=== PATIENT | female | born 1945 | race Caucasian/White ===

== ENCOUNTER 2019-09-18 02:03 | Outpatient (RCR) | payer MEDICARE, OTHER, SELFPAY ==
[2019-09-18 10:38] LABS: Abs Immature Grans 0.01 10^3/uL (0.0-0.06); Absolute Basophil Count 0.03 10^3/uL (0.0-0.2); Absolute Eosinophil Count 0.09 10^3/uL (0.0-0.7); Absolute Lymphocyte Count 1.17 10^3/uL (1.2-3.4); Absolute Monocyte Count 0.78 10^3/uL (0.1-0.8); Absolute Neutrophil Count 3.33 10^3/uL (1.2-6.7); Basophils % 0.6; Eosinophils % 1.7; HCT 41.1 % (36.0-46.0); HGB 13.5 g/dL (11.2-15.7); Immature Grans % 0.2; Lymphocytes % 21.6; MCH 29.8 pg (27.0-33.0); MCHC 32.8 % (32.0-36.0); MCV 90.7 fL (80-95); Monocytes % 14.4; Neutrophils % 61.5; Platelet Count 220 10^3/uL (130-400); RBC 4.53 10^6/uL (3.93-5.22); RDW-SD 42.7 fL; WBC 5.41 10^3/uL (4.4-10.8)
[2019-09-18 10:55] LABS: ALT 23 U/L (14-59); AST 27 U/L (15-37); Albumin 3.4 g/dL (3.4-5.0); Alkaline Phosphatase 63 U/L (46-116); Anion Gap 9.5 mmol/L (3-11); BUN 13 mg/dL (7-18); Bilirubin, Total 0.7 mg/dL (0.2-1.0); CO2 25.5 mmol/L (21.0-32.0); CREATININE 0.83 mg/dL (0.55-1.02); Calcium 8.7 mg/dL (8.5-10.1); Chloride 101 mmol/L (98-107); Glucose 103 mg/dL (74-106); Potassium 4.3 mmol/L (3.5-5.1); Sodium 136 mmol/L (136-145); Total Protein 6.6 g/dL (6.4-8.2)
== END 2019-09-19 23:59 | disposition home or self-care (01) ==
LOC: INF 02:03
PROVIDERS: PCP Neuromusculoskeletal Medicine & OMM; Visit Provider Internal Medicine Hematology & Oncology
DX: C21.0 Malignant neoplasm of anus, unspecified (principal)
CPT/HCPCS: 36415; 80053; 85025

== ENCOUNTER → 2019-10-01 14:24 | Outpatient (CLI) | payer MEDICARE, OTHER, SELFPAY ==
--- NOTE | 2019-10-01 10:47 | DI.RAD_ITS ---
EXAM: RF CATHETER PATENCY CHECK W CLINICAL HISTORY: ANAL CA, CHECK MEDIPORT,UNABLE TO GET BLOOD FLOW. TECHNIQUE: 2D and realtime digital imaging was performed. CONTRAST MATERIAL: Water soluble contrast was administered. COMPARISON: No exams were available for comparison FINDINGS: The tip of the indwelling central venous catheter is directed cephalad above the level of the clavicl e. Contrast was injected via the port. The contrast does not flow away from the tip of the catheter . The contrast appears to collect along the path of the catheter. The findings are suspicious for a subcutaneous location or obstruction of the catheter tip. IMPRESSION: Malfunction of the catheterization. Findings were discussed with the patient's oncology service on the date of the examination. Fluoro time: 1.29 seconds.
[2019-10-01] MEDS: Omnipaque 350 MG/ML 50 ML BTL IJ (11:22)
== END ==
PROVIDERS: PCP Neuromusculoskeletal Medicine & OMM; Visit Provider Nurse Practitioner Adult Health
DX: T85.618A Breakdown (mechanical) of other specified internal prosthetic devices, implants and grafts, initial encounter (principal); C21.1 Malignant neoplasm of anal canal
CPT/HCPCS: 76000; 96523; Q9967

== ENCOUNTER 2019-10-14 17:21 | Outpatient (REF) | payer MEDICARE, OTHER, SELFPAY ==
[2019-10-14 12:06] LABS: Abs Immature Grans 0.05 10^3/uL (0.0-0.06); Absolute Basophil Count 0.02 10^3/uL (0.0-0.2); Absolute Eosinophil Count 0.02 10^3/uL (0.0-0.7); Absolute Lymphocyte Count 0.38 10^3/uL (1.2-3.4); Absolute Monocyte Count 0.18 10^3/uL (0.1-0.8); Absolute Neutrophil Count 3.88 10^3/uL (1.2-6.7); Basophils % 0.4; Eosinophils % 0.4; HCT 40.1 % (36.0-46.0); HGB 13.3 g/dL (11.2-15.7); Immature Grans % 1.1; Lymphocytes % 8.4; MCH 29.6 pg (27.0-33.0); MCHC 33.2 % (32.0-36.0); MCV 89.1 fL (80-95); MPV 10.3 fL (8.0-11.0); Neutrophils % 85.7; Nucleated RBC 0 %; Platelet Count 164 10^3/uL (130-400); RDW 12.7 % (11.7-14.6); RDW-SD 41.4 fL; WBC 4.53 10^3/uL (4.4-10.8)
[2019-10-14 12:15] LABS: ALT 20 U/L (14-59); AST 17 U/L (15-37); Albumin 3.2 g/dL (3.4-5.0); Alkaline Phosphatase 62 U/L (46-116); Anion Gap 6.1 mmol/L (3-11); BUN 18 mg/dL (7-18); CO2 23.9 mmol/L (21.0-32.0); CREATININE 0.54 mg/dL (0.55-1.02); Calcium 8.7 mg/dL (8.5-10.1); Chloride 104 mmol/L (98-107); Glucose 99 mg/dL (74-106); Potassium 3.2 mmol/L (3.5-5.1); Sodium 134 mmol/L (136-145); Total Protein 5.7 g/dL (6.4-8.2)
== END 2019-10-14 17:41 ==
LOC: LBN 17:21
PROVIDERS: PCP Neuromusculoskeletal Medicine & OMM; Visit Provider Nurse Practitioner Adult Health
DX: C21.0 Malignant neoplasm of anus, unspecified (principal)
CPT/HCPCS: 80053; 83735; 85025; 87324

== ENCOUNTER 2019-10-16 14:14 | Emergency (ER) | payer MEDICARE, OTHER, SELFPAY ==
[2019-10-16] VITALS (18 sets, daily range): BP systolic 109–143; BP diastolic 63–90; PULSE 81–99; RESP 12–41; TEMP 36.4–36.6; O2SAT 94–98
--- NOTE | 2019-10-16 14:15 | DI.CT_ITS ---
EXAM: CT CHEST PE CTA CLINICAL HISTORY: Right sided chest pain, R/O PE. TECHNIQUE: Imaging Protocol: Axial CT angiography was performed with multi-slice acquisition and mu lti-planar and/or 3D reconstructions. CONTRAST MATERIAL: Intravenous: Omnipaque 350 Contrast volume:structured data in ml COMPARISON: No exams were available for comparison FINDINGS: CT angiography of the chest was performed with intravenous infusion of 78 cc of Omnipaque 350. There is a Port-A-Cath in place the tip of which lies in the right atrium. The lungs are clear except for a small calcified right upper lobe intrapulmonary nodule consistent wi th healed granulomatous disease.. No pleural effusion. Tracheobronchial tree appears intact. No evidence of pulmonary embolic disease. Thoracic aorta is of normal diameter, no thoracic aortic an eurysm or dissection, major branch vessels appear intact. No mediastinal or hilar adenopathy. Images obtained through the upper abdomen show unremarkable appearance of the visualized portions of the liver, spleen, pancreas, adrenals, and kidneys. Appearance of the thyroid is heterogeneous, possible left thyroid lobe nodule 2 cm, correlation thyro id ultrasound recommended. IMPRESSION: No evidence of pulmonary embolic disease. Incidental possible 2 cm left thyroid lobe nodule, please correlate with thyroid ultrasound. RADIATION DOSE DELIVERED: 574.29mGy.cm Total DLP 574.29mGy.cm Total DLP DATA REPOSITORY: All CT scans at this facility are submitted to the National Radiology Data Registry (NRDR) Dose Index Registry (DIR) with the [employer] ([employer]). RADIATION OPTIMIZATION: All CT scans at this facility use at least one of these dose optimization te chniques: automated exposure control; mA and/or kV adjustment per patient size (includes targeted exa ms where dose is matched to clinical indication); or iterative reconstruction.
--- NOTE | 2019-10-16 14:15 | RT.EKG_ITS ---
APPROVED REPORT Exam: Resting ECG Patient Location: E HR:92 bpm ECG Measurements Heart Rate 92 AXIS DE 156 P 11 QRSd 80 QRS -40 QT 473 T 39 QTc 586 Conclusion Sinus rhythm...normal P axis, V-rate 92 Inferior infarct, old...Q >35mS, II III aVF Prolonged QT interval...QTc >500mS No stemi
--- NOTE | 2019-10-16 14:40 | ED.GENADUL_ITS ---
Discharge Plan Disposition Patient Disposition: HOME Condition: Stable Discharge Details Chief Complaint: Chest Pain Clinical Impression: Chest pain, Hypokalemia Primary Care Provider: Corby Tony ED Provider: Flo Kinney Home Meds and New Rx's Prescriptions: New potassium chloride 20 mEq tablet extended release 20 meq PO DAILY Qty: 14 RF: 0 Continued prochlorperazine maleate 10 mg Tablet 10 mg PO Q6H PRNRF: 0 capecitabine 500 mg Tablet PO RF: 0 acetaminophen 500 mg Tablet 1,000 mg PO Q6H PRNRF: 0 famotidine 20 mg Tablet 20 mg PO BID PRNRF: 0 methotrexate sodium 2.5 mg Tablet 2.5 mg PO QWEEK RF: 0 dexamethasone 1 mg Tablet 2 mg PO DAILY RF: 0 docusate sodium 100 mg Capsule 100 mg PO BID RF: 0 hydroxychloroquine 200 mg Tablet 200 mg PO DAILY RF: 0 multivitamin with minerals Tablet 1 tab PO DAILY RF: 0 polyethylene glycol 3350 17 gram/dose Powder 17 g PO DAILY PRNRF: 0 ondansetron 4 mg Tablet,Disintegrating 4 mg PO Q8H PRNRF: 0 rituximab 10 mg/mL Concentrate 1,000 mg IV RF: 0 vitamin E 400 unit Capsule 400 unit PO DAILY RF: 0 folic acid 800 mcg Tablet 0.8 mg PO DAILY RF: 0 metoclopramide HCl 10 mg Tablet 5 mg PO Q6H PRNRF: 0 escitalopram oxalate 20 mg Tablet 20 mg PO DAILY RF: 0 bupropion HCl 150 mg Tablet Extended Release 24 Hr 150 mg PO DAILY RF: 0 cholecalciferol (vitamin D3) 25 mcg (1,000 unit) Tablet 25 mcg PO DAILY RF: 0 Discharge Instructions Instructions: Chest Pain (ED), Hypokalemia (ED) Additional Instructions: At this time CTA did not reveal any obvious blood clot in your lung. As we discussed your potassium was low, both p.o. and IV potassium given here in the ER. I have also given you a prescription for potassium. Please watch for new or worsening symptoms and return to the ER for any concerns. Otherwise follow- up with your oncology team as already scheduled tomorrow. Discharge Data Discharge Date/Time-TO BE ENTERED AT DEPARTURE: 10/16/19 18:55 Medical Decision Making <Huma Iverson - Last Filed: 10/17/19 20:38> 73-year-old female presents from the cancer center with chief complaint of right sided chest pain and shortness of breath. This began following a radiation treatment today for anal cancer. Patient states that she was sitting in a chair being wheeled out of the department when she has an acute sudden onset of right sided mid axillary pleuritic type chest pain which she describes as sharp. It then radiated to the left side of her chest and anterior midsternal chest. Which she reports as a heaviness. The pain has now subsided upon initial exam but she reports dyspneic shortness of breath. She denies any fever chills, nausea vomiting. She does report loose stools which is been ongoing for the last week due to increased laxative ingestion. She states that she been taking Imodium the last 2 days. She does not take aspirin on a daily basis. She is not a not a smoker denies any illicit drugs. work-up ordered including CBC, CMP, serial troponins, CT chest rule out PE. We will give aspirin here in department. Discussed low potassium result of 2.9 with patient. She states that she has been prescribed potassium supplement per her primary care provider but just picked it up today. At this time patient is being transported to diagnostic imaging for chest CT. Her initial troponin was within normal limits. 20 mEq of KCl ordered IV piggyback at this time. Care is to be handed off to oncoming provider KYM Bob discussed patient case in details and plan for chest CT and repeat troponin, verbalized understanding. At this time of this dictation patient was hemodynamically stable. <KYM Fowler - Last Filed: 10/16/19 19:16> This is a 73-year-old female who I assumed care that shift change from my colleague SOFI Iverson. Patient was evaluated today at the cancer center and subsequently sent to the ER for right-sided chest pain that eventually wrapped around the lower chest wall onto the left side. Please see SOFI Iverson's initial HPI for full story. Concern for potential PE, laboratory values have already been obtained, CTA pending as well as repeat troponin. Upon my assumption of her care in room 4, she was resting comfortably in no acute distress. Head normocephalic, moist mucous membranes, lungs clear to auscultation, heart regular rate and rhythm, abdomen soft, nontender. Without calf pain or swelling. Patient currently tells me that she is asymptomatic. She reports that she was belching earlier and she believes that she was having gas pain. She is agreeable to awaiting a repeat troponin. Labs already obtained revealed a white count of 3.54 hemoglobin 12.7 hematocrit 37.5 platelet count 125. Potassium 2.9, creatinine 0.54 with a GFR greater than 60. Glucose 98. Urine without evidence of infection. CTA read by radiology as negative for PE. Incidental thyroid nodule, if this is never been evaluated then recommend ultrasound. I discussed CT findings. She reports that this nodule is known and she has been evaluated in [place] for the same. Repeat troponin pending, patient remains asymptomatic. In the meantime I was able to reach out to the [facility], able to speak with NINO Vigil. She is aware of the patient's visit at their clinic and her presentation to the ER. They recommend that she takes all scheduled medications today and she is to follow-up with Dr. Ewing tomorrow as already scheduled. This was relayed to the patient, she had no additional questions or concerns. Repeat troponin remained less than 0.05. She remains asymptomatic. We discussed her potassium level. She checked and she does not have a prescription for potassium. I will give her a single p.o. dose now and she will fill her prescription tomorrow. She was encouraged to return to the ER for new or worsening symptoms, otherwise follow-up with her oncology team as already scheduled tomorrow. HPI <Huma Iverson - Last Filed: 10/17/19 20:38> General Date/Time Provider Initiated Documentation: 10/16/19 14:15 . Limitations to Documentation: no limitations . Information obtained by: patient . HPI Narrative: 73-year-old female presents from the [facility] with chief complaint of right sided chest pain and shortness of breath. This began following a radiation treatment today for anal cancer. Patient states that she was sitting in a chair being wheeled out of the department when she has an acute sudden onset of right sided mid axillary pleuritic type chest pain which she describes as sharp. It then radiated to the left side of her chest and anterior midsternal chest. Which she reports as a heaviness. The pain has now subsided upon initial exam but she reports dyspneic shortness of breath. She denies any fever chills, nausea vomiting. She does report loose stools which is been ongoing for the last week due to increased laxative ingestion. She states that she been taking Imodium the last 2 days. She does not take aspirin on a daily basis. She is not a not a smoker denies any illicit drugs. Related Data Home Medications Medication Instructions Recorded Confirmed acetaminophen 1,000 mg PO Q6H PRN 10/16/19 10/16/19 bupropion HCl 150 mg PO DAILY 10/16/19 10/16/19 capecitabine mg PO 10/16/19 cholecalciferol (vitamin D3) 25 mcg PO DAILY 10/16/19 10/16/19 dexamethasone 2 mg PO DAILY 10/16/19 10/16/19 docusate sodium 100 mg PO BID 10/16/19 10/16/19 escitalopram oxalate 20 mg PO DAILY 10/16/19 10/16/19 famotidine 20 mg PO BID PRN 10/16/19 10/16/19 folic acid 0.8 mg PO DAILY 10/16/19 10/16/19 hydroxychloroquine 200 mg PO DAILY 10/16/19 10/16/19 methotrexate sodium 2.5 mg PO QWEEK 10/16/19 10/16/19 metoclopramide HCl 5 mg PO Q6H PRN 10/16/19 10/16/19 multivitamin with minerals 1 tab PO DAILY 10/16/19 10/16/19 ondansetron 4 mg PO Q8H PRN 10/16/19 10/16/19 polyethylene glycol 3350 17 g PO DAILY PRN 10/16/19 10/16/19 potassium chloride 20 meq PO DAILY #14 tab 10/16/19 prochlorperazine maleate 10 mg PO Q6H PRN 10/16/19 10/16/19 rituximab 1,000 mg IV 10/16/19 vitamin E 400 unit PO DAILY 10/16/19 10/16/19 Previous Rx's Medication Instructions Recorded potassium chloride 20 meq PO DAILY #14 tab 10/16/19 Allergies Allergy/AdvReac Type Severity Reaction Status Date / Time infliximab Allergy Hives Unverified 10/16/19 15:00 Penicillins Allergy Hives Unverified 10/16/19 14:24 Sulfa (Sulfonamide Allergy Hives Unverified 10/16/19 14:24 Antibiotics) tuberculin,PPD,multi-puncture Allergy Anaphylaxsi Unverified 10/16/19 14:24 s General Stated Complaint: Chest Pain ELSI: 2 Review of Systems <Huma Iverson - Last Filed: 10/17/19 20:38> Narrative: Constitutional: Negative for weight loss, alert and oriented, well groomed, normal body habitus, appears comfortable. HEENT: Denies trauma, headaches, blurry vision, nasal discharge, sore throat, trouble swallowing. Chest: Denies palpitations, irregular rhythm, hypertension. Positive right- sided chest pain with radiation around to the left anterior chest. Respiratory: Denies cough, hemoptysis. Positive shortness of breath. GI: Denies abdominal pain, nausea, vomiting, positive alternating diarrhea with alternating constipation due to anal cancer which she has been treated for this time. : Denies dysuria, hematuria, flank pain, rectal bleeding. Neuro: Denies dizziness, blurry vision, weakness, syncope, headache or facial numbness. Hematologic: Denies easy bruising, intolerance to heat or cold, hair loss. PFSH <Huma Iverson - Last Filed: 10/17/19 20:38> Social History Smoking/Tobacco Use Status: Never Alcohol Intake: current Alcohol Intake frequency: holidays/special occasions only Drug use: Never Substance use type: does not use Do you feel safe at home: Yes Do you feel safe in your relationship?: Yes Exam <Huma Iverson - Last Filed: 10/17/19 20:38> Narrative Exam Narrative: Constitutional: Alert and oriented x3. Appears stated age. Normal body habitus. Head: Normocephalic, no trauma. Eyes: Pupils PERRLA, Red reflex noted, EOM's intact. Eyelids symmetrical without lesions, discharge, or swelling. ENT: Bilateral TM's WNL, External ear normal to inspection, no mastoid TTP, swelling, or erythema, Nasal turbinates WNL, no nasal discharge. Normal dentition, Posterior pharynx WNL, no exudate. Chest: RRR, Normal S1, S2, distal pulses intact. She does have a right anterior chest wall Port-A-Cath. Resp: Lungs clear to auscultation bilaterally, no wheezes, rales, or rhonchi. Musculoskeletal: Normal gait, 5/5 strength to all four extremities. Skin: No suspicious rashes or lesions. Capillary refill less than 2 sec. Neurologic: Cranial nerves II-XII intact. Alert and oriented x 3. DTR's intact. Hematologic/Lymphatic: No ecchymosis, no lymphadenopathy. Course <Huma Iverson - Last Filed: 10/17/19 20:38> Vital Signs Vital signs: Vital Signs Temperature 36.6 C 10/16/19 14:18 Pulse 99 H 10/16/19 14:18 Respiratory Rate 24 10/16/19 14:18 Blood Pressure 123/63 10/16/19 14:18 Pulse Oximetry 96 10/16/19 14:18 Temperature 36.6 C 10/16/19 14:18 Temperature Source Temporal Artery Scan 10/16/19 14:18 Pulse 99 H 10/16/19 14:18 Respiratory Rate 24 10/16/19 14:18 Respiratory Effort 10/16/19 14:21 Blood Pressure 123/63 10/16/19 14:18 Blood Pressure Position Supine 10/16/19 14:18 Pulse Oximetry 96 10/16/19 14:18 Oxygen Delivery Method Room Air 10/16/19 14:18 Oxygen Flow Rate 0 10/16/19 14:18 Pain Level 2 10/16/19 14:18 Sign Out <Huma Iverson - Last Filed: 10/17/19 20:38> Sign Out Data: Sign Out Comment: Pending CT chest result and Potassium infusion Last updated by Huma Iverson at 10/16/19 16:11
[2019-10-16 14:42] LABS: Abs Immature Grans 0.02 10^3/uL (0.0-0.06); Absolute Basophil Count 0.01 10^3/uL (0.0-0.2); Absolute Eosinophil Count 0.06 10^3/uL (0.0-0.7); Absolute Lymphocyte Count 0.45 10^3/uL (1.2-3.4); Absolute Monocyte Count 0.29 10^3/uL (0.1-0.8); Absolute Neutrophil Count 2.71 10^3/uL (1.2-6.7); Basophils % 0.3; Eosinophils % 1.7; HCT 37.5 % (36.0-46.0); HGB 12.7 g/dL (11.2-15.7); Immature Grans % 0.6; Lymphocytes % 12.7; MCH 29.7 pg (27.0-33.0); MCHC 33.9 % (32.0-36.0); MCV 87.8 fL (80-95); MPV 9.6 fL (8.0-11.0); Monocytes % 8.2; Neutrophils % 76.5; Nucleated RBC 0 %; Platelet Count 125 10^3/uL (130-400); RBC 4.27 10^6/uL (3.93-5.22); RDW 12.9 % (11.7-14.6); RDW-SD 40.7 fL; WBC 3.54 10^3/uL (4.4-10.8)
[2019-10-16] MEDS: Aspirin 81 MG CHEW 324 MG CH (14:52)
[2019-10-16 14:55] LABS: ALT 24 U/L (14-59); AST 21 U/L (15-37); Alkaline Phosphatase 63 U/L (46-116); Anion Gap 12.4 mmol/L (3-11); BUN 18 mg/dL (7-18); Bilirubin, Total 0.8 mg/dL (0.2-1.0); CO2 22.6 mmol/L (21.0-32.0); CREATININE 0.54 mg/dL (0.55-1.02); Calcium 8.4 mg/dL (8.5-10.1); Chloride 101 mmol/L (98-107); Glucose 98 mg/dL (74-106); Sodium 136 mmol/L (136-145); Troponin I < 0.05 ng/mL (<0.06)
[2019-10-16 15:05] LABS: Potassium 2.9 mmol/L (3.5-5.1)
[2019-10-16] MEDS: Normal Saline 250 ML IV (16:00)
[2019-10-16] MEDS: POTASSIUM CHLORIDE 20 MEQ/100 ML BAG 50 MEQ IVPB (16:00)
[2019-10-16] MEDS: Omnipaque 350 MG/ML 100 ML BTL IJ (16:02)
[2019-10-16] MEDS: Normal Saline - Diluent 50 ML VIAL IV (16:02)
[2019-10-16 16:30] LABS: Bilirubin Small (Negative); Blood Negative (Negative); Clarity Clear (Clear); Glucose Negative (Negative); Ketones 15 mg/dL (Negative); Leukocyte Esterase Negative (Negative); Nitrite Negative (Negative); Specific Gravity >= 1.030 (1.005-1.025); Urobilinogen 0.2 EU/dL (Up TO 0.2); pH 6.5 (5-8)
[2019-10-16 16:32] LABS: Bacteria Negative HPF (Negative); Epithelial Cells Many HPF (Negative); RBC Negative HPF (0-2)
[2019-10-16 16:33] LABS: C & S Indicated? No/Sq. Contamination; Casts Negative LPF (Negative); Crystals Many Calcium Oxalate HPF (Negative); Mucus Negative (Negative)
--- NOTE | 2019-10-16 17:15 | RT.EKG_ITS ---
APPROVED REPORT Exam: Resting ECG Patient Location: E HR:87 bpm ECG Measurements Heart Rate 87 AXIS NH 160 P 10 QRSd 83 QRS -36 QT 375 T 25 QTc 451 Conclusion Sinus rhythm.rate 87 Inferior infarct, old...Q >35mS, II III aVF no stemi
[2019-10-16 17:51] LABS: Troponin I < 0.05 ng/mL (<0.06)
[2019-10-16] MEDS: Potassium Chloride 20 MEQ TABCR 40 MEQ PO (18:35)
== END 2019-10-16 18:55 | disposition home or self-care (01) ==
PROVIDERS: Registered Nurse Emergency; Emergency Provider Physician Assistant; PCP Neuromusculoskeletal Medicine & OMM
DX: E87.6 Hypokalemia (principal); R07.81 Pleurodynia; R06.02 Shortness of breath; Z95.828 Presence of other vascular implants and grafts
CPT/HCPCS: 36591; 71275; 80053; 93005; 96361; 96365; 96366; 99285; 81003; 81015; 83735; 84484; 85025; 93010; 99284; J3480; J3490

== ENCOUNTER 2019-10-20 14:15 | Outpatient (RCR) | payer MEDICARE, OTHER, SELFPAY ==
[2019-10-01] MEDS: Normal Saline Flush 10 ML SYR IVP (11:09)
[2019-10-10 15:02] LABS: Abs Immature Grans 0.02 10^3/uL (0.0-0.06); Absolute Lymphocyte Count 0.56 10^3/uL (1.2-3.4); Absolute Monocyte Count 0.31 10^3/uL (0.1-0.8); Absolute Neutrophil Count 3.84 10^3/uL (1.2-6.7); HCT 38.4 % (36.0-46.0); HGB 12.6 g/dL (11.2-15.7); Immature Grans % 0.4; Lymphocytes % 11.8; MCH 29.7 pg (27.0-33.0); MCHC 32.8 % (32.0-36.0); MCV 90.6 fL (80-95); Monocytes % 6.6; Neutrophils % 81.2; Nucleated RBC 0 %; Platelet Count 214 10^3/uL (130-400); RBC 4.24 10^6/uL (3.93-5.22); RDW 13.2 % (11.7-14.6); RDW-SD 43.6 fL; WBC 4.73 10^3/uL (4.4-10.8)
[2019-10-10 15:20] LABS: ALT 20 U/L (14-59); AST 20 U/L (15-37); Alkaline Phosphatase 52 U/L (46-116); Anion Gap 8.8 mmol/L (3-11); BUN 12 mg/dL (7-18); Bilirubin, Total 0.9 mg/dL (0.2-1.0); CO2 26.2 mmol/L (21.0-32.0); CREATININE 0.76 mg/dL (0.55-1.02); Calcium 8.8 mg/dL (8.5-10.1); Chloride 97 mmol/L (98-107); Glucose 108 mg/dL (74-106); Sodium 132 mmol/L (136-145); Total Protein 6.1 g/dL (6.4-8.2)
[2019-10-20] MEDS: Heparin 500 UNITS/5 ML SYRINGE IV (14:29)
[2019-10-20] MEDS: Normal Saline Flush 10 ML SYR IVP (14:29)
[2019-10-20 14:44] LABS: ALT 22 U/L (14-59); AST 14 U/L (15-37); Albumin 3.3 g/dL (3.4-5.0); Alkaline Phosphatase 69 U/L (46-116); Anion Gap 6.5 mmol/L (3-11); BUN 19 mg/dL (7-18); Bilirubin, Total 0.5 mg/dL (0.2-1.0); CO2 24.5 mmol/L (21.0-32.0); CREATININE 0.81 mg/dL (0.55-1.02); Calcium 8.8 mg/dL (8.5-10.1); Chloride 107 mmol/L (98-107); Glucose 101 mg/dL (74-106); Potassium 4.4 mmol/L (3.5-5.1); Sodium 138 mmol/L (136-145); Total Protein 6.3 g/dL (6.4-8.2)
[2019-10-20 15:01] LABS: Abs Immature Grans 0.01 10^3/uL (0.0-0.06); Absolute Basophil Count 0.01 10^3/uL (0.0-0.2); Absolute Eosinophil Count 0.09 10^3/uL (0.0-0.7); Absolute Monocyte Count 0.41 10^3/uL (0.1-0.8); Absolute Neutrophil Count 2.21 10^3/uL (1.2-6.7); Basophils % 0.3; Eosinophils % 2.9; HCT 39.9 % (36.0-46.0); HGB 13.2 g/dL (11.2-15.7); Immature Grans % 0.3; Lymphocytes % 12.8; MCH 29.5 pg (27.0-33.0); MCHC 33.1 % (32.0-36.0); MCV 89.1 fL (80-95); MPV 10.3 fL (8.0-11.0); Monocytes % 13.1; Neutrophils % 70.6; Nucleated RBC 0 %; RBC 4.48 10^6/uL (3.93-5.22); RDW 13.2 % (11.7-14.6); RDW-SD 41.3 fL; WBC 3.13 10^3/uL (4.4-10.8)
[2019-10-20 15:36] LABS: Platelet Count 99 10^3/uL (130-400)
== END 2019-10-20 23:59 | disposition home or self-care (01) ==
LOC: INF 14:15
PROVIDERS: PCP Neuromusculoskeletal Medicine & OMM; Visit Provider Internal Medicine Hematology & Oncology
DX: C21.0 Malignant neoplasm of anus, unspecified (principal)
CPT/HCPCS: 36591; 80053; 96523; 85025

== ENCOUNTER 2019-11-14 04:27 | Outpatient (RCR) | payer MEDICARE, OTHER, SELFPAY ==
[2019-10-24] MEDS: Normal Saline Flush 10 ML SYR 30 ML IVP (15:03)
[2019-10-24] MEDS: Heparin 500 UNITS/5 ML SYRINGE IVP (15:04)
[2019-10-24 15:15] LABS: Absolute Eosinophil Count 0.07 10^3/uL (0.0-0.7); Absolute Monocyte Count 0.54 10^3/uL (0.1-0.8); Absolute Neutrophil Count 1.14 10^3/uL (1.2-6.7); Eosinophils % 3.4; HCT 37.6 % (36.0-46.0); HGB 12.8 g/dL (11.2-15.7); Lymphocytes % 14.6; MCV 88.3 fL (80-95); MPV 9.5 fL (8.0-11.0); Monocytes % 26.3; Neutrophils % 55.7; Nucleated RBC 0 %; RBC 4.26 10^6/uL (3.93-5.22); RDW 13.7 % (11.7-14.6); RDW-SD 40.7 fL; WBC 2.05 10^3/uL (4.4-10.8)
[2019-10-24 15:17] LABS: Platelet Count 73 10^3/uL (130-400)
[2019-10-24 15:25] LABS: ALT 21 U/L (14-59); AST 17 U/L (15-37); Albumin 3.3 g/dL (3.4-5.0); Alkaline Phosphatase 71 U/L (46-116); Anion Gap 6.8 mmol/L (3-11); BUN 15 mg/dL (7-18); Bilirubin, Total 0.9 mg/dL (0.2-1.0); CO2 26.2 mmol/L (21.0-32.0); CREATININE 0.73 mg/dL (0.55-1.02); Calcium 8.8 mg/dL (8.5-10.1); Chloride 101 mmol/L (98-107); Glucose 100 mg/dL (74-106); Potassium 4.1 mmol/L (3.5-5.1); Sodium 134 mmol/L (136-145); Total Protein 6.3 g/dL (6.4-8.2)
[2019-10-31] MEDS: Heparin 500 UNITS/5 ML SYRINGE IV (12:41)
[2019-10-31] MEDS: Normal Saline Flush 10 ML SYR IVP (12:41)
[2019-10-31 12:55] LABS: Abs Immature Grans 0.01 10^3/uL (0.0-0.06); Absolute Lymphocyte Count 0.23 10^3/uL (1.2-3.4); Absolute Monocyte Count 0.17 10^3/uL (0.1-0.8); Absolute Neutrophil Count 1.77 10^3/uL (1.2-6.7); Eosinophils % 4.4; HCT 34.6 % (36.0-46.0); HGB 11.4 g/dL (11.2-15.7); Immature Grans % 0.4; Lymphocytes % 10.1; MCHC 32.9 % (32.0-36.0); MCV 91.1 fL (80-95); MPV 9.9 fL (8.0-11.0); Monocytes % 7.5; Neutrophils % 77.6; Nucleated RBC 0 %; RDW-SD 43.1 fL; WBC 2.28 10^3/uL (4.4-10.8)
[2019-10-31 13:10] LABS: ALT 16 U/L (14-59); AST 16 U/L (15-37); Albumin 2.8 g/dL (3.4-5.0); Alkaline Phosphatase 71 U/L (46-116); Anion Gap 7.4 mmol/L (3-11); BUN 19 mg/dL (7-18); Bilirubin, Total 0.8 mg/dL (0.2-1.0); CO2 25.6 mmol/L (21.0-32.0); CREATININE 0.88 mg/dL (0.55-1.02); Calcium 8.4 mg/dL (8.5-10.1); Chloride 101 mmol/L (98-107); Glucose 126 mg/dL (74-106); Sodium 134 mmol/L (136-145); Total Protein 5.6 g/dL (6.4-8.2)
[2019-10-31 13:13] LABS: Platelet Count 41 10^3/uL (130-400)
[2019-11-07] MEDS: Heparin 500 UNITS/5 ML SYRINGE IV (12:45)
[2019-11-07] MEDS: Normal Saline Flush 10 ML SYR IVP (12:45)
[2019-11-07 12:55] LABS: Abs Immature Grans 0.01 10^3/uL (0.0-0.06); Absolute Eosinophil Count 0.05 10^3/uL (0.0-0.7); Absolute Lymphocyte Count 0.12 10^3/uL (1.2-3.4); Absolute Monocyte Count 0.22 10^3/uL (0.1-0.8); Absolute Neutrophil Count 0.94 10^3/uL (1.2-6.7); Eosinophils % 3.7; HCT 32.3 % (36.0-46.0); HGB 10.8 g/dL (11.2-15.7); Immature Grans % 0.7; MCH 30.3 pg (27.0-33.0); MCHC 33.4 % (32.0-36.0); MCV 90.7 fL (80-95); MPV 9.1 fL (8.0-11.0); Monocytes % 16.4; Neutrophils % 70.2; Platelet Count 101 10^3/uL (130-400); RBC 3.56 10^6/uL (3.93-5.22); RDW 16.1 % (11.7-14.6); RDW-SD 45.8 fL
[2019-11-07 13:13] LABS: WBC 1.34 10^3/uL (4.4-10.8)
[2019-11-07 13:14] LABS: ALT 15 U/L (14-59); AST 19 U/L (15-37); Albumin 2.5 g/dL (3.4-5.0); Alkaline Phosphatase 67 U/L (46-116); Anion Gap 5.7 mmol/L (3-11); BUN 14 mg/dL (7-18); Bilirubin, Total 0.9 mg/dL (0.2-1.0); CO2 28.3 mmol/L (21.0-32.0); CREATININE 0.88 mg/dL (0.55-1.02); Calcium 8.3 mg/dL (8.5-10.1); Chloride 101 mmol/L (98-107); Diff Comment Agrees w/ Instrument; Glucose 111 mg/dL (74-106); Macrocytosis 1+; Nucleated RBC 1 %; Polychromasia Present; Potassium 3.9 mmol/L (3.5-5.1); Sodium 135 mmol/L (136-145); Total Protein 5.4 g/dL (6.4-8.2)
[2019-11-11] MEDS: Normal Saline Flush 10 ML SYR IVP (10:19)
[2019-11-11 10:29] LABS: Abs Immature Grans 0.08 10^3/uL (0.0-0.06); Absolute Eosinophil Count 0.02 10^3/uL (0.0-0.7); HCT 34.1 % (36.0-46.0); HGB 11.1 g/dL (11.2-15.7); MCH 30.1 pg (27.0-33.0); MCHC 32.6 % (32.0-36.0); MCV 92.4 fL (80-95); MPV 9.3 fL (8.0-11.0); Nucleated RBC 3 %; Platelet Count 137 10^3/uL (130-400); RBC 3.69 10^6/uL (3.93-5.22); RDW 17.9 % (11.7-14.6); WBC 2.35 10^3/uL (4.4-10.8)
[2019-11-11 10:49] LABS: ALT 9 U/L (14-59); AST 18 U/L (15-37); Albumin 2.4 g/dL (3.4-5.0); Alkaline Phosphatase 65 U/L (46-116); Anion Gap 5.6 mmol/L (3-11); BUN 15 mg/dL (7-18); Bilirubin, Total 0.7 mg/dL (0.2-1.0); CO2 28.4 mmol/L (21.0-32.0); CREATININE 1.05 mg/dL (0.55-1.02); Calcium 8.3 mg/dL (8.5-10.1); Chloride 101 mmol/L (98-107); Estimated GFR 51.37 (mL/min/1.73m2); Glucose 125 mg/dL (74-106); Potassium 3.6 mmol/L (3.5-5.1); Sodium 135 mmol/L (136-145); Total Protein 5.3 g/dL (6.4-8.2)
[2019-11-11 10:58] LABS: Absolute Lymphocyte Count 0.19 10^3/uL (1.2-3.4); Absolute Monocyte Count 0.47 10^3/uL (0.1-0.8); Absolute Neutrophil Count 1.62 10^3/uL (1.2-6.7); Atypical Lymphocytes % 1; Bands % 7
[2019-11-11 10:59] LABS: Diff Comment Manual Differential; Metamyelocytes % 2
[2019-11-11 11:00] LABS: Polychromasia Present
[2019-11-14] MEDS: Normal Saline Flush 10 ML SYR IVP (12:20)
[2019-11-14] MEDS: Heparin 500 UNITS/5 ML SYRINGE IV (12:20)
[2019-11-14 12:27] LABS: Abs Immature Grans 0.04 10^3/uL (0.0-0.06); Absolute Basophil Count 0.01 10^3/uL (0.0-0.2); Absolute Lymphocyte Count 0.21 10^3/uL (1.2-3.4); Absolute Monocyte Count 0.38 10^3/uL (0.1-0.8); Absolute Neutrophil Count 1.76 10^3/uL (1.2-6.7); Basophils % 0.4; HCT 32.7 % (36.0-46.0); HGB 10.7 g/dL (11.2-15.7); Immature Grans % 1.7; Lymphocytes % 8.8; MCH 30.2 pg (27.0-33.0); MCHC 32.7 % (32.0-36.0); MCV 92.4 fL (80-95); MPV 9.4 fL (8.0-11.0); Monocytes % 15.8; Neutrophils % 73.3; Nucleated RBC 0 %; Platelet Count 124 10^3/uL (130-400); RBC 3.54 10^6/uL (3.93-5.22); RDW 18.5 % (11.7-14.6); RDW-SD 57.8 fL
[2019-11-14 12:36] LABS: ALT 12 U/L (14-59); AST 21 U/L (15-37); Albumin 2.4 g/dL (3.4-5.0); Alkaline Phosphatase 68 U/L (46-116); Anion Gap 6.5 mmol/L (3-11); BUN 17 mg/dL (7-18); Bilirubin, Total 0.8 mg/dL (0.2-1.0); CO2 27.5 mmol/L (21.0-32.0); CREATININE 0.74 mg/dL (0.55-1.02); Calcium 8.2 mg/dL (8.5-10.1); Chloride 102 mmol/L (98-107); Glucose 118 mg/dL (74-106); Potassium 3.7 mmol/L (3.5-5.1); Sodium 136 mmol/L (136-145); Total Protein 5.2 g/dL (6.4-8.2)
== END 2019-11-19 23:59 | disposition home or self-care (01) ==
LOC: INF 04:27
PROVIDERS: PCP Neuromusculoskeletal Medicine & OMM; Visit Provider Internal Medicine Hematology & Oncology
DX: C21.0 Malignant neoplasm of anus, unspecified (principal); Z45.2 Encounter for adjustment and management of vascular access device
CPT/HCPCS: 36591; 80053; 85025

== ENCOUNTER 2019-11-19 19:48 | Outpatient (REF) | payer MEDICARE, OTHER, SELFPAY ==
[2019-11-19 18:07] LABS: Bilirubin Small (Negative); Blood Negative (Negative); Clarity Turbid (Clear); Glucose Negative (Negative); Ketones Negative (Negative); Leukocyte Esterase Trace (Negative); Nitrite Negative (Negative); Specific Gravity >= 1.030 (1.005-1.025); Urobilinogen 0.2 EU/dL (Up TO 0.2); pH 6.5 (5-8)
[2019-11-19 18:19] LABS: C & S Indicated? Yes; Crystals Many Amorphous HPF (Negative)
== END 2019-11-19 20:08 ==
LOC: LBN 19:48
PROVIDERS: PCP Neuromusculoskeletal Medicine & OMM; Visit Provider Radiology Radiation Oncology
DX: L25.8 Unspecified contact dermatitis due to other agents (principal)
CPT/HCPCS: 81003; 81015; 87086

== ENCOUNTER 2019-11-25 17:56 | Inpatient (IN) | payer MEDICARE, OTHER, SELFPAY ==
[2019-11-25] VITALS (7 sets, daily range): BP systolic 121–139; BP diastolic 56–74; PULSE 63–101; RESP 16–32; TEMP 36.4–36.7; O2SAT 93–95
--- NOTE | 2019-11-25 18:00 | RT.EKG_ITS ---
APPROVED REPORT Exam: Resting ECG Patient Location: E HR:94 bpm ECG Measurements Heart Rate 94 AXIS OR 174 P 1 QRSd 82 QRS -19 QT 365 T 15 QTc 456 Conclusion Sinus rhythm..Rate 94 Anterior Q waves No st elevation
--- NOTE | 2019-11-25 18:15 | DI.RAD_ITS ---
EXAM: XR CHEST 2V PA LATERAL CLINICAL HISTORY: Anal Cancer, gen weakness TECHNIQUE: COMPARISON: No exams were available for comparison FINDINGS: There is a Port-A-Cath in position on the right, the tip of which lies in the SVC. Heart is not enla rged. Lungs are grossly clear and well expanded. No pleural effusion seen. IMPRESSION: No evidence of acute process. RADIATION DOSE DELIVERED: Total DLP
--- NOTE | 2019-11-25 18:25 | ED.GENADUL_ITS ---
Discharge Plan Disposition Patient Disposition: [facility] INPATIENT Condition: Stable Discharge Details Clinical Impression: Acute hypokalemia, Anal cancer Primary Care Provider: Corby Tony ED Provider: Prateek Clark Home Meds and New Rx's Prescriptions: No Action prochlorperazine maleate 10 mg Tablet 10 mg PO Q6H PRNRF: 0 capecitabine 500 mg Tablet PO RF: 0 acetaminophen 500 mg Tablet 1,000 mg PO Q6H PRNRF: 0 famotidine 20 mg Tablet 20 mg PO BID PRNRF: 0 methotrexate sodium 2.5 mg Tablet 2.5 mg PO QWEEK RF: 0 dexamethasone 1 mg Tablet 2 mg PO DAILY RF: 0 docusate sodium 100 mg Capsule 100 mg PO BID RF: 0 hydroxychloroquine 200 mg Tablet 200 mg PO DAILY RF: 0 multivitamin with minerals Tablet 1 tab PO DAILY RF: 0 polyethylene glycol 3350 17 gram/dose Powder 17 g PO DAILY PRNRF: 0 ondansetron 4 mg Tablet,Disintegrating 4 mg PO Q8H PRNRF: 0 rituximab 10 mg/mL Concentrate 1,000 mg IV RF: 0 vitamin E 400 unit Capsule 400 unit PO DAILY RF: 0 folic acid 800 mcg Tablet 0.8 mg PO DAILY RF: 0 metoclopramide HCl 10 mg Tablet 5 mg PO Q6H PRNRF: 0 escitalopram oxalate 20 mg Tablet 20 mg PO DAILY RF: 0 bupropion HCl 150 mg Tablet Extended Release 24 Hr 150 mg PO DAILY RF: 0 cholecalciferol (vitamin D3) 25 mcg (1,000 unit) Tablet 25 mcg PO DAILY RF: 0 potassium chloride 20 mEq tablet extended release 20 meq PO DAILY Qty: 14 RF: 0 Medical Decision Making 74-year-old female who has anal cancer being treated by the [facility]. She has been undergoing 5-day a week radiation and oral chemotherapy. She is had some generalized weakness for a few weeks time, now particularly worsening over 2 to 3 days time and her daughter notes that she has been unable to get out of bed on her own now for the past 2 days and has been urinating on pads in the bed rather than risks trying to go to the bathroom. She is not had a fever. She is had decreased p.o. intake with simply a piece of toast and sips of liquids today. No syncope. No chest pain. No known travel. She arrives to the ER with a pulse of 100 at rest, afebrile at 36.4, pleasant and interactive with her daughter Margie at the bedside. Her exam notes some raw areas of skin in her bilateral inguinal region to which barrier cream was applied. Her rectum does show ulceration of the perirectal/anal skin. Differential diagnosis includes dehydration, electrolyte abnormality, must exclude occult pneumonia or UTI. IV placed, fluids initiated, patient referred for chest x-ray, urinalysis, laboratory work-up. Labs reveal a sodium of 133, potassium 3.0, chloride 98, bicarb 28, BUN 18, creatinine 0.7. Albumin 2.0. Magnesium 1.8. LFTs unremarkable, troponin negative. CBC with white count 7.5, hematocrit 33, platelets 105, ANC 1.0. Urinalysis specific gravity 1.02, trace ketones present, no nitrites and no leuk esterase. Chest x-ray with linear opacity noted in the left lung base. Likely atelectasis. Patient's decline over days to weeks time, her hypokalemia, hypoalbuminemia and general decompensation I do feel it is reasonable to consider admission for hydration, electrolyte supplementation, PT/OT evaluation and consultation with palliative care. Case discussed with Dr. Kaur. Patient states to me she does wish to be DNR/DNI. She is amenable to consultation with palliative care. HPI General Mode of arrival: ambulatory . Date/Time Provider Initiated Documentation: 11/25/19 17:57 . Limitations to Documentation: no limitations . Information obtained by: patient and family . History of Present Illness 74 year old F presents to the emergency department with the chief complaint of Generalized weakness, worse over 3 days, undergoing chemo and radiation, described as moderate, Quality is described as dull and constant, Patient started experiencing this day(s) and it has been constant. Rest improves symptom(s), Movement worsens symptoms . Patient notes loss of appetite, malaise and weakness; denies fever/chills and syncope. Patient did receive the following treatments prior to arrival, none Related Data Home Medications Medication Instructions Recorded Confirmed acetaminophen 1,000 mg PO Q6H PRN 10/16/19 10/16/19 bupropion HCl 150 mg PO DAILY 10/16/19 10/16/19 capecitabine mg PO 10/16/19 cholecalciferol (vitamin D3) 25 mcg PO DAILY 10/16/19 10/16/19 dexamethasone 2 mg PO DAILY 10/16/19 10/16/19 docusate sodium 100 mg PO BID 10/16/19 10/16/19 escitalopram oxalate 20 mg PO DAILY 10/16/19 10/16/19 famotidine 20 mg PO BID PRN 10/16/19 10/16/19 folic acid 0.8 mg PO DAILY 10/16/19 10/16/19 hydroxychloroquine 200 mg PO DAILY 10/16/19 10/16/19 methotrexate sodium 2.5 mg PO QWEEK 10/16/19 10/16/19 metoclopramide HCl 5 mg PO Q6H PRN 10/16/19 10/16/19 multivitamin with minerals 1 tab PO DAILY 10/16/19 10/16/19 ondansetron 4 mg PO Q8H PRN 10/16/19 10/16/19 polyethylene glycol 3350 17 g PO DAILY PRN 10/16/19 10/16/19 potassium chloride 20 meq PO DAILY #14 tab 10/16/19 prochlorperazine maleate 10 mg PO Q6H PRN 10/16/19 10/16/19 rituximab 1,000 mg IV 10/16/19 vitamin E 400 unit PO DAILY 10/16/19 10/16/19 Previous Rx's Medication Instructions Recorded potassium chloride 20 meq PO DAILY #14 tab 10/16/19 Allergies Allergy/AdvReac Type Severity Reaction Status Date / Time infliximab Allergy Hives Unverified 11/25/19 18:06 Penicillins Allergy Hives Unverified 11/25/19 18:06 Sulfa (Sulfonamide Allergy Hives Unverified 11/25/19 18:06 Antibiotics) tuberculin,PPD,multi-puncture Allergy Anaphylaxsi Unverified 11/25/19 18:06 s General Stated Complaint: GenMedical ELSI: 3 Review of Systems Narrative: No fever, no cough. Decreased p.o. intake. Unable to get out of bed and having to urinate on pads. Worse past 2 days. No falls or injury. [facility] Social History Smoking/Tobacco Use Status: Never Alcohol Intake: current Alcohol Intake frequency: holidays/special occasions only Drug use: Never Substance use type: does not use Do you feel safe at home: Yes Do you feel safe in your relationship?: Yes Exam Narrative Exam Narrative: GEN: awake, alert, oriented 3. Pleasant, well groomed, interactive. HEAD: Normocephalic, atraumatic ENT: Mucous membranes moist, oropharynx unremarkable, External ear exam unremarkable EYES: PERRL, EOMI NECK: Full ROM, no NIDIA, no menigismus CHEST/RESP: Nontender, clear to auscultation bilateral, no wheeze/rhonchi/rales CARDIOVASCULAR: Tachycardic and regular, no murmur, rub albert. 2+ Rad pulse bilateral ABDOMEN: Soft, nontender, no mass. +Bowel sounds. Bilateral inguinal crease with raw skin present. Rectal exam with ulcerated perirectal tissue. EXT: Full ROM, no edema, no rash Neuro: Grossly normal neurologic exam, conversant, interactive. Psych: Speech fluent, thoughts congruent, affect normal Course Vital Signs Vital signs: Vital Signs Temperature 36.4 C L 11/25/19 18:02 Pulse 101 H 11/25/19 18:02 Respiratory Rate 22 11/25/19 18:02 Blood Pressure 129/61 11/25/19 18:02 Pulse Oximetry 93 11/25/19 18:02 Temperature 36.4 C L 11/25/19 18:02 Pulse 101 H 11/25/19 18:02 Respiratory Rate 22 11/25/19 18:02 Respiratory Effort 11/25/19 18:06 Blood Pressure 129/61 11/25/19 18:02 Blood Pressure Position Supine 11/25/19 18:02 Pulse Oximetry 93 11/25/19 18:02 Oxygen Delivery Method Room Air 11/25/19 18:02 Oxygen Flow Rate 0 11/25/19 18:02 Pain Level 4 11/25/19 18:02
[2019-11-25] MEDS: Normal Saline 1,000 ML 1000 ML IV (18:30)
[2019-11-25 18:36] LABS: Abs Immature Grans 0.37 10^3/uL (0.0-0.06); HCT 33.3 % (36.0-46.0); HGB 11.2 g/dL (11.2-15.7); MCH 30.5 pg (27.0-33.0); MCHC 33.6 % (32.0-36.0); MCV 90.7 fL (80-95); MPV 9.7 fL (8.0-11.0); Nucleated RBC 1 %; Platelet Count 105 10^3/uL (130-400); RBC 3.67 10^6/uL (3.93-5.22); RDW 20.4 % (11.7-14.6); WBC 7.51 10^3/uL (4.4-10.8)
[2019-11-25 18:52] LABS: ALT 13 U/L (14-59); AST 20 U/L (15-37); Alkaline Phosphatase 73 U/L (46-116); Anion Gap 6.8 mmol/L (3-11); BUN 18 mg/dL (7-18); Bilirubin, Total 0.8 mg/dL (0.2-1.0); CO2 28.2 mmol/L (21.0-32.0); CREATININE 0.74 mg/dL (0.55-1.02); Calcium 7.8 mg/dL (8.5-10.1); Chloride 98 mmol/L (98-107); Glucose 104 mg/dL (74-106); Magnesium 1.8 mg/dL (1.8-2.4); Sodium 133 mmol/L (136-145); Total Protein 4.8 g/dL (6.4-8.2)
[2019-11-25 18:53] LABS: Troponin I < 0.05 ng/mL (<0.06)
[2019-11-25 18:54] LABS: Absolute Lymphocyte Count 1.05 10^3/uL (1.2-3.4); Absolute Neutrophil Count 5.18 10^3/uL (1.2-6.7); Atypical Lymphocytes % 2; Bands % 1
[2019-11-25 18:55] LABS: Absolute Monocyte Count 1.28 10^3/uL (0.1-0.8); Anisocytosis 1+; Diff Comment Manual Differential; Polychromasia Present
--- NOTE | 2019-11-25 19:15 | NUR.NOTE ---
Nursing Note: Petroleum jelly applied to groin area to peeling skin.
--- NOTE | 2019-11-25 19:16 | DI.VRAD_ITS ---
PROCEDURE INFORMATION: Exam: XR Chest, 2 Views Exam date and time: 11/25/2019 6:50 PM Age: 74 years old Clinical indication: Anal cancer, gen weakness TECHNIQUE: Imaging protocol: XR of the chest Views: 2 views. COMPARISON: CT CHEST PE CTA 10/16/2019 3:48 PM FINDINGS: Tubes, catheters and devices: There is a right-sided chest port in place with catheter terminating in the lower superior vena cava. Lungs: No gross consolidation. A linear opacity noted in the left lung base, may represent atelectasis. Pleural space: No pleural effusion. No pneumothorax. Heart/Mediastinum: Unremarkable. No cardiomegaly. Bones/joints: Unremarkable. IMPRESSION: Suggestion of mild atelectasis in the left lung, however mild pneumonia in this region is possible and may be excluded clinically. Dictated and Authenticated by: Denae Wells MD. Ordering:XIANG Chandra MD
[2019-11-25 19:24] LABS: Bilirubin Small (Negative); Blood Negative (Negative); Clarity Clear (Clear); Glucose Negative (Negative); Ketones Trace mg/dL (Negative); Leukocyte Esterase Negative (Negative); Nitrite Negative (Negative); Specific Gravity 1.025 (1.005-1.025); pH 6.5 (5-8)
[2019-11-25 19:36] LABS: Epithelial Cells Few HPF (Negative)
[2019-11-25 19:37] LABS: Bacteria Moderate HPF (Negative); C & S Indicated? Yes; Casts Negative LPF (Negative); Crystals Negative HPF (Negative); Mucus Heavy (Negative); Other Cells Negative (Negative)
[2019-11-25] MEDS: POTASSIUM CHLORIDE/0.9% NACL 1,000 ML 100 MEQ IV (19:57)
--- NOTE | 2019-11-25 20:49 | W.PM.HP.N ---
Date of service: 11/25/19 Time of Service: 20:49 Assessment and Plan Assessment and plan (1) Acute hypokalemia: Status: Acute Assessment and plan: K of 3.0 on admission. Due to poor po intake. Given IV K+ in the ED Kcl 20 meq po daily initiated. Monitor (2) Anal cancer: Status: Acute Assessment and plan: Has raw anal area. Finished course of radiation tx. She has a barrier ointment she uses; will have her supply this if possible. She is currently on oral chemotx. Pallitative care consulted to discuss her goals and plan a course of action given her current decline. (3) Generalized weakness: Status: Acute Assessment and plan: Chemo and radiation tx, cancer and poor nutrition all contributing. Will see if marinol helps with her appetite. Nutrition consulted. PT consulted. (4) Intertrigo: Status: Acute Assessment and plan: Barriet creatm applied in the ED and will continue. (5) Rheumatoid arthritis: Status: Chronic Assessment and plan: Previous to her cancer dx and initiating oral chemotx she was taking methotrexate and Plaquenil She states she is currently doing OK regarding her RA. She does take 1000mg po immediate release tylenol Q6h prn. She takes a dose at night to help her sleep. Will give a dose of Ofirmev 1000mg IV tonight. History of Present Illness History of Present Illness Chief Complaint: Weakness Narrative: This is a 74 yo female with a h/o anal cancer and depression. She is currently undergoing treatment at [facility]. She just completed a course of radiation and continues on oral chemotherapy tx. She has endorsed generalized weakness for several weeks, worsening over the last 2-3 days. She has been unable to get out of bed w/o assistance recently. Her daughter reports they have been placing pads under her to soak urine rather than risk her falling while assisting her to the bathroom. She reports her oral intake has been poor / has a lack of appetite. On the day of admission she only ate a piece of toast and took sips of liquids. She has had no F/C, emesis, diarrhea. Her WBC count was normal; previously had been neutropenic. Hgb 11.2. K low at 3.0. Wild mildly low at 133. Calcium low at 7.8. Mg 1.8. Albumin low; 2.0. Review of Systems All systems reviewed & are unremarkable except as noted in HPI and below PFSH Social History Smoking/Tobacco Use Status: Never Alcohol Intake: current Alcohol Intake frequency: holidays/special occasions only Drug use: Never Substance use type: does not use Do you feel safe at home: Yes Do you feel safe in your relationship?: Yes Meds Home Medications and Allergies Home Medications Medication Instructions Recorded Confirmed Type acetaminophen 1,000 mg PO Q6H PRN 10/16/19 11/25/19 History bupropion HCl 150 mg PO DAILY 10/16/19 11/25/19 History cholecalciferol (vitamin D3) 25 mcg PO DAILY 10/16/19 11/25/19 History docusate sodium 100 mg PO BID PRN 10/16/19 11/25/19 History escitalopram oxalate 20 mg PO DAILY 10/16/19 11/25/19 History famotidine 20 mg PO BID PRN 10/16/19 11/25/19 History folic acid 0.8 mg PO DAILY 10/16/19 11/25/19 History metoclopramide HCl 5 mg PO Q6H PRN 10/16/19 11/25/19 History multivitamin with minerals 1 tab PO DAILY 10/16/19 11/25/19 History polyethylene glycol 3350 17 g PO DAILY PRN 10/16/19 11/25/19 History prochlorperazine maleate 10 mg PO Q6H PRN 10/16/19 11/25/19 History vitamin E 400 unit PO DAILY 10/16/19 11/25/19 History oxycodone See Rx Instructions .ROUTE .COMPLEX 11/25/19 11/25/19 History Allergies Allergy/AdvReac Type Severity Reaction Status Date / Time infliximab Allergy Hives Unverified 11/25/19 18:06 ondansetron [From Zofran] Allergy Other (See Unverified 11/25/19 20:05 Comment) Penicillins Allergy Hives Unverified 11/25/19 18:06 Sulfa (Sulfonamide Allergy Hives Unverified 11/25/19 18:06 Antibiotics) tuberculin,PPD,multi-puncture Allergy Anaphylaxsi Unverified 11/25/19 18:06 s Exam Const General: cooperative and no acute distress Nutritional Appearance: obese Orientation: oriented x3 [facility] Head: normocephalic and atraumatic Ears: hearing grossly normal bilaterally Eyes Sclera: sclerae normal Pupils: PERRL Resp Effort & Inspection: normal respiratory effort Auscultation: clear to auscultation bilaterally Cardio Jugular venous pressure: no JVD Rate: regular rate Rhythm: regular rhythm Heart Sounds: S1 normal and S2 normal GI Inspection: obesity Palpation: soft Auscultation: normal bowel sounds Skin General skin exam: erythema (groin creases) Extrem General: no clubbing, cyanosis or edema and no calf tenderness Psych Appearance: grossly normal Mental Status: mental status grossly normal Speech and Movement: speech and movement normal Affect: normal affect Results Labs Result diagrams: 11/25/19 18:15 11/25/19 18:15 Labs: Laboratory Results - last 24 hr 11/25/19 11/25/19 11/25/19 18:15 18:15 19:10 WBC 7.51 RBC 3.67 L Hgb 11.2 Hct 33.3 L MCV 90.7 MCH 30.5 MCHC 33.6 RDW 20.4 H Plt Count 105 L MPV 9.7 Immature Gran % 0.0 Neutrophils % 68.0 Band Neutrophils % 1 Lymphocytes % 12.0 Atypical Lymphs % 2 Monocytes % 17.0 Eosinophils % 0.0 Basophils % 0.0 Nucleated RBC % 1 Absolute Neutrophils 5.18 Absolute Lymphocytes 1.05 L Absolute Monocytes 1.28 H Absolute Eosinophils 0.00 Absolute Basophils 0.00 RBC Morphology See below Polychromasia Present Anisocytosis 1+ Sodium 133 L Potassium 3.0 L Chloride 98 Carbon Dioxide 28.2 Anion Gap 6.8 BUN 18 Creatinine 0.74 Estimated GFR/1.73 m2 >= 60.00 Glucose 104 Calcium 7.8 L Magnesium 1.8 Total Bilirubin 0.8 AST 20 ALT 13 L Alkaline Phosphatase 73 Troponin I < 0.05 Total Protein 4.8 L Albumin 2.0 L Urine Color Yellow Urine Clarity Clear Urine pH 6.5 Ur Specific [place] 1.025 Urine Protein 30 H Urine Ketones Trace H Urine Blood Negative Urine Nitrite Negative Urine Bilirubin Small H Urine Urobilinogen 1.0 H Ur Leukocyte Esterase Negative Urine RBC 5-10 H Urine WBC 10-20 H Ur Epithelial Cells Few Urine Crystals Negative Urine Bacteria Moderate Urine Casts Negative Urine Mucus Heavy Urine Other Negative Ur Culture Indicated? Yes Urine Glucose Negative Last Vital Signs Temp 36.4 C L 11/25/19 18:02 Pulse 63 11/25/19 19:16 Resp 27 H 11/25/19 20:38 BP 121/58 L 11/25/19 19:16 Pulse Ox 93 11/25/19 20:38 COVID-19 Screening Have you,or household,traveled outside [place] in last 14 days?: No Had IN PERSON contact w/suspected or confirmed C-19 person: No
[2019-11-25] MEDS: ACETAMINOPHEN 1,000 MG/100 ML BTL 400 MG IVPB (22:25)
[2019-11-26] MEDS: POTASSIUM CHLORIDE/0.9% NACL 1,000 ML 100 MEQ IV ×2 (05:56→16:45)
[2019-11-26] MEDS: Normal Saline Flush 10 ML SYR IVP ×2 (07:22→11:39)
[2019-11-26 07:29] VITALS: BP 110/77; PULSE 74; RESP 18; TEMP 36.6; O2SAT 91
[2019-11-26 07:55] LABS: ALT 12 U/L (14-59); AST 19 U/L (15-37); Albumin 1.7 g/dL (3.4-5.0); Alkaline Phosphatase 69 U/L (46-116); Anion Gap 8.3 mmol/L (3-11); BUN 13 mg/dL (7-18); Bilirubin, Total 0.7 mg/dL (0.2-1.0); CO2 25.7 mmol/L (21.0-32.0); CREATININE 0.73 mg/dL (0.55-1.02); Calcium 7.5 mg/dL (8.5-10.1); Chloride 103 mmol/L (98-107); Glucose 80 mg/dL (74-106); Magnesium 1.9 mg/dL (1.8-2.4); Potassium 3.2 mmol/L (3.5-5.1); Sodium 137 mmol/L (136-145); Total Protein 4.3 g/dL (6.4-8.2)
[2019-11-26] MEDS: Dronabinol 2.5 MG CAP PO ×2 (07:57→19:42)
[2019-11-26] MEDS: Potassium Chloride 20 MEQ TABCR PO ×3 (07:57→19:43)
[2019-11-26] MEDS: Cholecalciferol (Vitamin D3) 1,000 UNIT TAB 1000 UNITS PO (07:57)
[2019-11-26] MEDS: Folic Acid 1 MG TAB PO (07:57)
[2019-11-26] MEDS: Vitamin E 400 UNITS CAP PO (07:57)
[2019-11-26] MEDS: Multivitamin w/Minerals TAB 1 TAB PO (07:57)
[2019-11-26] MEDS: Enoxaparin 40 MG/0.4 ML SYR SC (07:57)
[2019-11-26] MEDS: Loperamide 2 MG CAP 4 MG PO (08:45)
--- NOTE | 2019-11-26 09:36 | W.PM.PROGNOT ---
Date of Service Date of service: 11/26/19 Time of Service: 09:36 Assessment and Plan Assessment and plan (1) Anal cancer: Status: Acute Assessment and plan: patient is having diarrhea since her radiation treatments (which ended 11/17) which is causing her hypokalemia and generalized weakness and skin excoriations of her perianal area. I have asked pharmacist to call her pharmacy at [email or web address] to obtain the ingredients to compound her skin paste. The patient will receive iv fluids and potassium replacement and I will ask P.T. to see her. (2) Acute hypokalemia: Status: Acute Assessment and plan: will give her both iv and oral replacement (3) Generalized weakness: Status: Acute Assessment and plan: physical therapy consulted to assess her strength/gait (4) Intertrigo: Status: Acute Assessment and plan: pharmacy to confirm ingredients in her skin barrier paste and formulate the same for her while hospitalized (5) Rheumatoid arthritis: Status: Chronic Assessment and plan: currently stable/controlled. no joint swelling. Patient has been off her MTX and Plaquenyl since the beginning of her radiation and chemotherapy treatments (6) Diarrhea: Status: Acute Assessment and plan: will check stool for C. difficile however, the patient has not been hospitalized recently nor has she had any antibiotics Subjective Subjective Interval history since last seen: 74-year-old female history rheumatoid arthritis and anal carcinoma who underwent chemotherapy and radiation therapy completing her radiation treatments November 18, 2019. She has had ongoing diarrhea since she started radiation treatments. Usually is controlled with Imodium. Diarrhea is gotten worse lately and she has not been able to keep up adequate fluids as developed generalized weakness. She was found to be dehydrated and hypokalemic and admitted for IV fluids and potassium replacement along with physical therapy. Exam Narrative Exam Narrative: Alert and oriented person place time circumstance patient is lying in bed on her side. She is in no distress but has been uncomfortable and suffer from generalized weakness. Lungs are clear to auscultation Heart is regular rate and rhythm Abdomen soft nontender nondistended normal active bowel sounds. Anal area and perianal skin is excoriated Objective Last Vital Signs Temp 36.6 C 11/26/19 07:29 Pulse 74 11/26/19 07:29 Resp 18 11/26/19 07:29 BP 110/77 11/26/19 07:29 Pulse Ox 91 L 11/26/19 07:29 Laboratory Results - last 24 hr 11/25/19 11/25/19 11/25/19 18:15 18:15 19:10 WBC 7.51 RBC 3.67 L Hgb 11.2 Hct 33.3 L MCV 90.7 MCH 30.5 MCHC 33.6 RDW 20.4 H Plt Count 105 L MPV 9.7 Immature Gran % 0.0 Neutrophils % 68.0 Band Neutrophils % 1 Lymphocytes % 12.0 Atypical Lymphs % 2 Monocytes % 17.0 Eosinophils % 0.0 Basophils % 0.0 Nucleated RBC % 1 Absolute Neutrophils 5.18 Absolute Lymphocytes 1.05 L Absolute Monocytes 1.28 H Absolute Eosinophils 0.00 Absolute Basophils 0.00 RBC Morphology See below Polychromasia Present Anisocytosis 1+ Sodium 133 L Potassium 3.0 L Chloride 98 Carbon Dioxide 28.2 Anion Gap 6.8 BUN 18 Creatinine 0.74 Estimated GFR/1.73 m2 >= 60.00 Glucose 104 Calcium 7.8 L Magnesium 1.8 Total Bilirubin 0.8 AST 20 ALT 13 L Alkaline Phosphatase 73 Troponin I < 0.05 Total Protein 4.8 L Albumin 2.0 L Urine Color Yellow Urine Clarity Clear Urine pH 6.5 Ur Specific [place] 1.025 Urine Protein 30 H Urine Ketones Trace H Urine Blood Negative Urine Nitrite Negative Urine Bilirubin Small H Urine Urobilinogen 1.0 H Ur Leukocyte Esterase Negative Urine RBC 5-10 H Urine WBC 10-20 H Ur Epithelial Cells Few Urine Crystals Negative Urine Bacteria Moderate Urine Casts Negative Urine Mucus Heavy Urine Other Negative Ur Culture Indicated? Yes Urine Glucose Negative 11/26/19 07:15 WBC RBC Hgb Hct MCV MCH MCHC RDW Plt Count MPV Immature Gran % Neutrophils % Band Neutrophils % Lymphocytes % Atypical Lymphs % Monocytes % Eosinophils % Basophils % Nucleated RBC % Absolute Neutrophils Absolute Lymphocytes Absolute Monocytes Absolute Eosinophils Absolute Basophils RBC Morphology Polychromasia Anisocytosis Sodium 137 Potassium 3.2 L Chloride 103 Carbon Dioxide 25.7 Anion Gap 8.3 BUN 13 Creatinine 0.73 Estimated GFR/1.73 m2 >= 60.00 Glucose 80 Calcium 7.5 L Magnesium 1.9 Total Bilirubin 0.7 AST 19 ALT 12 L Alkaline Phosphatase 69 Troponin I Total Protein 4.3 L Albumin 1.7 L Urine Color Urine Clarity Urine pH Ur Specific [place] Urine Protein Urine Ketones Urine Blood Urine Nitrite Urine Bilirubin Urine Urobilinogen Ur Leukocyte Esterase Urine RBC Urine WBC Ur Epithelial Cells Urine Crystals Urine Bacteria Urine Casts Urine Mucus Urine Other Ur Culture Indicated? Urine Glucose
--- NOTE | 2019-11-26 10:05 | PT.INIE ---
Date of service: 11/26/19 Time of Service: 10:05 PT Notes Visit Reasons: FAILURE TO THRIVE Physical Therapy Inpatient Initial Evaluation Date: 11/26/2019 Referring Doctor: Jaspreet Kaur MD PT Orders: PT CONSULT: Eval/treat Precautions: Fall. Standard. Activity as tolerated. Patient Profile/Admitting Diagnosis: Ana is a 74-year female with anal carcinoma being treated by [facility] who presents to the ED on 12/09/2019 with complaints of generalized weakness that has started for a few weeks now with increasing inability to get out of bed. PMHX: Rheumatoid arthritis Intertrigo Social History/Home Situation: Ana lives in a private home without steps with and daughter. works twice a week which days helps out with her mom. She is independent with all mobility ADL performance without an assistive ambulatory device. She reports 1 fall in the past year. Equipment Owned/DME: Front wheel walker Subjective: Patient reports being fatigued. Sitting on the edge of the bed increases her discomfort in her anal area. She denies headache, chest pain, and dizziness throughout session. Objective: General Observation: Telemetry monitoring in place. IV in right UE. Mental Status: Alert and oriented x4 Pain: Discomfort in the anal area with sitting at edge of bed. ROM: Right Upper Extremity: Shoulder Flexion allows only up to 90 degrees. Shoulder abduction allows only up to 90 degrees. Elbow flexion WFL. Wrist flexion WFL. Opening and closing of hand WFL. Left Upper Extremity: Shoulder Flexion allows only up to 90 degrees. Shoulder abduction allows only up to 90 degrees. Elbow flexion WFL. Wrist flexion WFL. Opening and closing of hand WFL. Right Lower Extremity: Hip flexion WFL. Hip abduction WFL. Knee flexion WFL. Ankle dorsiflexion WFL. Ankle plantarflexion WFL. Left Lower Extremity: Hip flexion WFL. Hip abduction WFL. Knee flexion WFL. Ankle dorsiflexion WFL. Ankle plantarflexion WFL. Strength: Right Upper Extremity: Shoulder flexors 3-/5. Shoulder abductors 3-/5. Elbow flexors 4/5. Elbow extensors 4/5. Icebox Worker strong. Left Upper Extremity: Shoulder flexors 3-/5. Shoulder abductors 3-/5. Elbow flexors 4/5. Elbow extensors 4/5. Icebox Worker strong. Right Lower Extremity: Hip flexors 3+/5. Hip abductors 3+/5. Knee flexors 4-/5. Knee extensors 4-/5. Ankle dorsiflexors 4/5. Ankle plantarflexors 4/5. Left Lower Extremity:Hip flexors 3/5. Hip abductors 3/5. Knee flexors 4/5. Knee extensors 4/5. Ankle dorsiflexors 4-/5. Ankle plantarflexors 4-/5. Sensation: Intact as to pain and pressure on bilateral lower extremities. Bed Mobility/Transfers: Rolling standby assist Supine to sit standby assist Sit to supine standby assist Sit to stand contact-guard assist Stand to sit contact-guard assist Bed to chair not tested due to report of fatigue Chair to bed not tested due to report of fatigue Gait: Not tested due to report of fatigue Balance: Static Sitting: Normal Dynamic Sitting: Normal Static Standing: Fair Dynamic Standing: Fair Special Tests: Mobility Limitations Standardized Measure [facility] AM-PAC 6 clicks Basic Mobility Inpatient Short Form: Raw Score: 18 CMS Score: 47% deficit Informed Consent/Education: Patient instructed in purpose of PT consult and plan of care. Assessment: Ana demonstrates functional decline requiring the use of front wheeled walker for safe mobility ADL performance, decreased activity tolerance, generalized weakness, increased risk due to admitting diagnosis. Ana is a 74-year female with anal carcinoma being treated by [facility] [place] who presents to the ED on 12/09/2019 with complaints of generalized weakness that has started for a few weeks now with increasing inability to get out of bed. Patient presents with clinical signs and symptoms consistent with current/admitting diagnoses that have resulted to mobility limitations, gait instability, generalized weakness, and impairment of motor control as demonstrated by the following impairment level findings: 1. Decreased strength to be LE/UEs major muscle groups 2. Impaired standing balance 3. Impaired activity tolerance 4. Limitation of joint range of motion in B UEs 5. Anal pain discomfort weight bearing Impairments are contributing to the following functional limitations: 1. Dependent bed mobility skills 2. Increased dependence with transfers 3. Inability to safely ambulate without assistive device and physical assistance 4. Increase completion time for mobility ADL performance 5. Increased fall risk 6. Inability to negotiate steps alone safely Patient is assessed as a 41350 moderate complexity based on the following: History: 74-year-old female with impairment level findings, functional limitations, and past medical history as indicated above Examination: Demonstrable impairment in strength, balance, and mobility level with underlying impairments and functional limitations as documented above Presentation:Evolving Decision Makin moderate complexity Goals: Goals X1 week 1. Supine-Sit independent 2. Sit-Supine independent 3. Sit-Stand independent 4. Stand-Sit independent 5. Bed-Chair independent 6. Chair-Bed independent 7. Supervision gait on level surface with use of least restrictive device for at least 300 feet without report of pain nor dyspnea 8. Supervision stair negotiation while holding onto bilateral rails for at least 10 steps without report of pain nor dyspnea 9. Good static and dynamic standing balance/tolerance Plan of Care/Treatment Plan: 1-2x/day, 7 days/week x 1 week. Plan of care has been reviewed with the CONFIGURATION MANAGEMENT ADMINISTRATOR providing the service under Physical Therapy direction. Initiate Physical Therapy intervention for strengthening, bed mobility, transfers, gait, stairs, balance training, use of assistive device. DISCHARGE RECOMMENDATIONS: Patient will benefit from home health PT services in order to progress mobility level using least restrictive assistive ambulatory device, assess home safety, identify additional equipment needs, and establish a functional maintenance program that will increase ability of patient to remain at home. TREATMENT CODE/TIME: 69539 x 30 minutes beginning at 10:05 AM. Thank you for the opportunity to participate in the care of this patient. [place] PT, DPT, CLT [facility] [place], [place]
--- NOTE | 2019-11-26 10:39 | PHA.REVIEW ---
Pharmacy Admission Review - Admission Clinical Review (Last Reviewed 11/25/19 @ 18:26 by Prateek Clark MD) Intertrigo (Acute) Generalized weakness (Acute) Acute hypokalemia (Acute) Anal cancer (Acute) infliximab Allergy (Unverified 11/25/19 18:06) Hives ondansetron [From Zofran] Allergy (Unverified 11/25/19 20:05) Other (See Comment) Penicillins Allergy (Unverified 11/25/19 18:06) Hives Sulfa (Sulfonamide Antibiotics) Allergy (Unverified 11/25/19 18:06) Hives tuberculin,PPD,multi-puncture Allergy (Unverified 11/25/19 18:06) Anaphylaxsis Height 5 ft 3 in Weight 90.2 kg - Renal Dosing Renal Dosing: BUN 13 mg/dL (7-18) 11/26/19 07:15 Creatinine 0.73 mg/dL (0.55-1.02) 11/26/19 07:15 Medications needing adjustments: Reviewed - Anticoagulation Anticoagulation: Hgb 11.2 g/dL (11.2-15.7) 11/25/19 18:15 Hct 33.3 % (36.0-46.0) L 11/25/19 18:15 Plt Count 105 10^3/uL (130-400) L 11/25/19 18:15 Creatinine 0.73 mg/dL (0.55-1.02) 11/26/19 07:15 DVT Prohphylaxis: Reviewed Medications: Enoxaparin - Opiate Usage Evaluate Pain Scale/Pains Meds: Reviewed (Reported pain -05/29 -- has oxycodone PRN ordered, does have history of fentanyl prescribed) Scheduled Bowel Reg ordered if on Opiates?: Yes (PRN orders) - Relevant Labs Sodium 137 mmol/L (136-145) 11/26/19 07:15 Potassium 3.2 mmol/L (3.5-5.1) L 11/26/19 07:15 Chloride 103 mmol/L (98-107) 11/26/19 07:15 Magnesium 1.9 mg/dL (1.8-2.4) 11/26/19 07:15 - DM Control DM Control: Glucose 80 mg/dL (74-106) 11/26/19 07:15 - Heart Failure/SC Heart Failure/SC: Troponin I < 0.05 ng/mL (<0.06) 11/25/19 18:15 - BP Control BP Control: Blood Pressure 110/77 If elevated: Reviewed - Qtc Review If Elevated: Reviewed - IV to PO Switch IV Medications: Reviewed - Home Meds Home Med List reviewed: Reviewed Relevent Home Meds Not ordered & why?: MTX and hydroxychloroquine have been DC'd since pt started oral chemotx, one time fill of 15 fentanyl 50mcg patches in September - Current meds Current Medication Order Review: Reviewed - Comments Comments/Follow Ups: Will receive IV potassium replacement and fluids
[2019-11-26] MEDS: Magnesium Gluconate 500 MG TAB PO (11:39)
[2019-11-26] MEDS: POTASSIUM CHLORIDE 10 MEQ/100 ML BAG 100 MEQ IVPB ×2 (11:40→13:05)
[2019-11-26] MEDS: Loperamide 2 MG CAP PO ×3 (13:04→23:05)
[2019-11-26 13:22] LABS: C Diff PCR Negative (Negative)
[2019-11-26 14:24] LABS: COVID-19 RT-PCR UVMMC Result Negative (Negative)
--- NOTE | 2019-11-26 14:39 | PT.INTREAT ---
Date of service: 11/26/19 Time of Service: 14:39 PT Notes Visit Reasons: FAILURE TO THRIVE Inpatient Physical Therapy Treatment Note [facility] Date: 11/27/2019 PRECAUTIONS: Fall, Activity as Tolerated SUBJECTIVE: Ana is agreeable to particaipting in PT. OBJECTIVE: PAIN: No c/o pain BED MOBILITY/TRANSFERS Supine-sit: S Sit-stand: SBA Stand-sit: SBA GAIT Assistive Device: FWW Weight bearing: Full Assist: CGA-SBA Distance: 150' Deviation: C/o B UE shaking with increased distance THEREX: Patient completed several LE strengthening exercises, while seated at EOB, as per flow sheet. ASSESSMENT: Patient tolerated session with c/o increased fatigue following activity. Patient was able to use FWW to increase gait distance tolerated. She would benefit from continued global strengthening and gait training with FWW for energy conservation. PLAN: Continue with global strengthening and gait training with FWW. TREATMENT CODE/TIME: 25 minutes; 87766, [id number]
[2019-11-26 15:03] VITALS: BP 111/67; PULSE 80; RESP 18; TEMP 36.4; O2SAT 94
--- NOTE | 2019-11-26 15:29 | PDOC.CMIN ---
- If Service Date Differs Date of service: 11/26/19 Time of Service: 15:29 Care Management Initial Assess REASON FOR HOSPITALIZATION:: Weakness, failure to thrive, history of anal cancer with radiation PAST MEDICAL HISTORY/PAST SURGICAL HISTORY:: Anal cancer, hypokalemia, rheumatoid arthritis PREVIOUS FUNCTIONAL STATUS/SOCIAL/FAMILY SUPPORTS:: Ana lives with her spouse Zenon, and her daughter. 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 She was indepedent until treatment for her cancer. She states her daughter helps her at home however she is limited by her own medical problems. Ana does not have any equipment at home and uses no ambulatory aids. CURRENT FUNCTIONAL STATUS:: Ana is lying in bed she is having some abdominal discomfort and continues to have loose stools. She states that she lives with her daughter and her spouse and her daugther is helpful at home. She feels that she is not recovering well from her recent radiation treatments. She wants to return home when she is medically ready and would benefit from some in home VNA services. ADVANCE DIRECTIVES:: None on file Palliative care ordered anticipate will see her on , CM will need to contact the office in the morning to follow up. Has patient been provided with info about the portal/API?: No Did the patient sign up for the portal?: No (enrolled) CODE STATUS:: DNR/DNI INSURANCE COVERAGE / FINANCIAL ISSUES:: Medicare and [place] CURRENT HOME/COMMUNITY SERVICES/EQUIPMENT:: Outpatient Oncology [facility] PRIMARY CARE PHYSICIAN:: POTENTIAL DISCHARGE NEEDS:: Follow up with primary care, palliaitve care consultation, resumption of services through [facility] PATIENT/FAMILY EDUCATION NEEDS:: Discharge education, limitation, and follow up plan of care. ANTICIPATED BARRIERS TO DISCHARGE:: None identified TRANSPORTATION:: Via private car with family PLAN:: Ana will be discharged home when medically ready. She would benefit form new home health nursing which she agrees to. Her family will transport her home upon discharge.
--- NOTE | 2019-11-26 15:33 | CHAPLAIN ---
Ana's nurse, Sukhwinder, came to my office to get a prayer shawl for Ana this morning. When I visited her this afternoon, she was talking with her daughter who was preparing to leave. I introduced myself, explained my role and offered support.
[2019-11-26] MEDS: Acetaminophen 500 MG TAB 1000 MG PO (17:19)
--- NOTE | 2019-11-26 19:36 | WOUNDCONS ---
- If Service Date Differs Date of service: 11/26/19 Time of Service: 19:36 Wound Initial Evaluation Narrative: Patient states perianal radiation injury/ denuded area has been progressively been getting better over the last two weeks since she started using ointment compound ordered by her radiation oncologist at [facility]. The ointment consists of lidocaine 4%, ketoconozole 2%, Hydrocortisone 1% and triple antibiotic ointment which have been compounded together. She states that per her radiation oncology team, she is to use the ointment whenever I feel discomfort. She states she has been toileting about every two to three hours, even overnight over the last 5 or 6 days. Patient also stated that her area of discomfort and irritation was up to my vagina before. Now it is more localized around my rectum. - Wound perianal area Wound Type: Full Thickness Wound General Appearance: Unapproximated Wound Bed Greatest Portion: Dusky Red Wound Bed Lesser Portion: Yellow (Slough) Percent of Wound Bed Granulated/Red: 75 Percent of Wound Bed Slough/Yellow: 25 Wound Length: 6.5 cm Wound Width: 3.2 cm Wound Depth: 0.2 cm Wound Drainage Amount: Minimal Wound Drainage Odor: None/Absent - Pain Pain Level: 4 Pain Scale Used: Ashby-Lerner Faces Pain Description: Burning Pain Duration/Frequency: Intermittent Wound measured at area of partial thickness skin loss, which included areas of full thickness skin loss. Full thickness areas have yellow wound bases while the areas pf partial thickness are dusky red in color. The area is painful to touch with minimal cream colored drainage from the full thickness areas. No induration noted around periphery of wound. Patient lying on left side for assessment and right buttocks lifted for visability of wound and picture. - Recomendation Recomendation:: Recommend cleaning area well after every toileting and follow ointment recommendations from [facility] radiation oncology.
[2019-11-26 22:59] VITALS: BP 128/61; PULSE 85; RESP 17; TEMP 36.7; O2SAT 94
[2019-11-27] MEDS: POTASSIUM CHLORIDE/0.9% NACL 1,000 ML 100 MEQ IV ×3 (02:30→23:51)
[2019-11-27] MEDS: Loperamide 2 MG CAP PO ×3 (06:07→19:34)
[2019-11-27] MEDS: Famotidine 20 MG TAB PO (06:43)
[2019-11-27 06:59] LABS: Anion Gap 8.6 mmol/L (3-11); BUN 11 mg/dL (7-18); CO2 23.4 mmol/L (21.0-32.0); Calcium 7.7 mg/dL (8.5-10.1); Chloride 105 mmol/L (98-107); Glucose 112 mg/dL (74-106); Magnesium 1.7 mg/dL (1.8-2.4); Sodium 137 mmol/L (136-145)
[2019-11-27 07:30] VITALS: BP 136/92; PULSE 92; RESP 19; TEMP 36.6; O2SAT 96
[2019-11-27] MEDS: Acetaminophen 500 MG TAB 1000 MG PO ×3 (07:48→23:12)
[2019-11-27] MEDS: Enoxaparin 40 MG/0.4 ML SYR SC (08:06)
[2019-11-27] MEDS: Folic Acid 1 MG TAB PO (08:07)
[2019-11-27] MEDS: Potassium Chloride 20 MEQ TABCR PO ×2 (08:07→19:34)
[2019-11-27] MEDS: Dronabinol 2.5 MG CAP PO ×2 (08:08→19:34)
[2019-11-27] MEDS: Vitamin E 400 UNITS CAP PO (08:09)
[2019-11-27] MEDS: Magnesium Gluconate 500 MG TAB PO (08:09)
[2019-11-27] MEDS: Cholecalciferol (Vitamin D3) 1,000 UNIT TAB 1000 UNITS PO (08:10)
[2019-11-27] MEDS: MAGNESIUM SULFATE 2 GM/50 ML BAG IVPB (09:55)
[2019-11-27] MEDS: Loperamide 2 MG CAP 4 MG PO (09:56)
--- NOTE | 2019-11-27 09:56 | W.PM.PROGNOT ---
Date of Service Date of service: 11/27/19 Time of Service: 09:56 Assessment and Plan Assessment and plan (1) Anal cancer: Status: Acute Assessment and plan: continue w/ topical barrier cream to her perianal (2) Acute hypokalemia: Status: Acute Assessment and plan: will give her both iv and oral replacement (3) Generalized weakness: Status: Acute Assessment and plan: physical therapy consulted to assess her strength/gait (4) Intertrigo: Status: Acute Assessment and plan: pharmacy to confirm ingredients in her skin barrier paste and formulate the same for her while hospitalized (5) Rheumatoid arthritis: Status: Chronic Assessment and plan: currently stable/controlled. no joint swelling. Patient has been off her MTX and Plaquenyl since the beginning of her radiation and chemotherapy treatments (6) Diarrhea: Status: Acute Assessment and plan: C. difficile screen was negative. We will start her on some Questran to try to thicken her bowel movements continue with Imodium. Once the diarrhea is under control and she is tolerating a diet she can be discharged home. Subjective Subjective Interval history since last seen: Patient still having diarrhea. She had some crampy abdominal pain w/ her diarrhea. Stools are watery. Imodium helps but does not get rid of her diarrhea. I am going to start her on Questran to thicken her stools. Her C. difficile screen was negative. Her potassium is improved at 4.0. She is still receiving iv fluids w/ potassium supplementation along w/ potassium chloride 20 meq tid. I will decr. to bid. Once her diarrhea is under control and she is eating and drinking well enough then she can return home. Hopefully tomorrow. Exam Narrative Exam Narrative: Alert and oriented person place time circumstance patient is lying in bed on her side. She is in no distress but has been uncomfortable and suffer from generalized weakness. Lungs are clear to auscultation Heart is regular rate and rhythm Abdomen soft nontender nondistended normal active bowel sounds. Objective Last Vital Signs Temp 36.6 C 11/27/19 07:30 Pulse 92 H 11/27/19 07:30 Resp 19 11/27/19 07:30 BP 136/92 H 11/27/19 07:30 Pulse Ox 96 11/27/19 07:30 Laboratory Results - last 24 hr 11/25/19 11/26/19 11/27/19 19:55 12:25 06:35 Sodium 137 Potassium 4.0 D Chloride 105 Carbon Dioxide 23.4 Anion Gap 8.6 BUN 11 Creatinine 0.70 Estimated GFR/1.73 m2 >= 60.00 Glucose 112 H Calcium 7.7 L Magnesium 1.7 L Stl C.difficile Tox PCR Negative COVID-19 PCR Negative Nasopharyn COVID-19 PCR Not Applicable Ref Test Perform Site [facility] lab
[2019-11-27] MEDS: Cholestyramine/Aspartame PKT 1 EACH PO ×3 (11:15→19:35)
--- NOTE | 2019-11-27 11:29 | W.PALLCONSUL ---
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 She was in her usual state of health until early summer when she started having bowel changes. Colonoscopy showed that she had cancer and an anal mass. She has been receiving chemoradiation at [facility]. Dr. Ewing is her primary oncologist. She said that of late she has been very fatigued and has loose stools. This is been blamed on her radiation. She was hoping to be over this but it does not seem to be going away. She has been taking some intermittent Imodium and has been eating quite lightly She said that her cancer is curable and she plans to do this. She is hoping to be over this as soon as possible. (I did check Dr. Ewing's notes and he to said that it was a potentially curable cancer.) She lives with her and her daughter Margie. Her daughter Margie moved in a while back and once she developed cancer has been there to help her mom. Ana is quite proud of how Margie has been able to care for her even without any medical background. She has not done advanced directives or a CO LST form. She is very clear that she does not want resuscitation but she does want other treatment such as chemo and radiation. Consults Consult date: 11/27/19 Requesting physician: Flo Shea Assessment and Plan Assessment and plan (1) Diarrhea: Status: Acute (2) Rheumatoid arthritis: Status: Chronic (3) Generalized weakness: Status: Acute (4) Anal cancer: Status: Acute (5) Palliative care patient: Status: Acute Assessment and plan: Discussed at length her present diarrhea. She feels like she has gotten conflicting advice regarding her diarrhea from different people such as what she should eat, drink, meds, etc. She did have a bout of opioid induced constipation (now off the heavy duty opioids because she doesn't like how they make her feel). AT this point she is taking cholesteramine supplement and immodium. She thinks it may be helping. Per pt she has been checked for c diff twice and her home water did not show any contaiminants. I would recommend she try tincture of opioid if the present treatment doesn't work. She completed her DPOA designating her daughter Margie as primary contact and her as the secondary person. COLST was completed. She is a DNR/DNI, wants transport , IV fluids and antibiotics. No tube feedings. I gave her the original of both. Copies have been sent to [facility], [facility], PCP , [facility]. Thank you very much for this consult. I have spent more than 50% of time in counseling with this patient. (6) Physician orders for life-sustaining treatment (POLST) form indicates patient wish for [id number] status: Status: Acute Review of Systems Constitutional Constitutional: Reports daytime sleepiness, Reports fatigue, Reports lethargy, Reports malaise, Reports weakness and Reports weight loss (25 lb) Cardiovascular Cardiovascular: Denies chest pain, Reports rapid heart rate and Reports lightheadedness Gastrointestinal Gastrointestinal: Reports abdominal pain, Reports diarrhea, Reports loose stools and Reports nausea Neurologic Neurologic: Reports weakness Psychiatric Psychiatric: Reports depression Comments: Does not want to go on like this Endocrine Endocrine: Reports fatigue [facility] Social History Smoking/Tobacco Use Status: Never Alcohol Intake: current Alcohol Intake frequency: holidays/special occasions only Drug use: Never Substance use type: does not use Do you feel safe at home: Yes Do you feel safe in your relationship?: Yes Exam Narrative Exam Narrative: Nena woman. Very direct and forthcoming. She is speaking in complete sentences. Cooperative. She does not appear uncomfortable. Results Last Vital Signs Temp 97.9 F 11/27/19 07:30 Pulse 92 H 11/27/19 07:30 Resp 19 11/27/19 07:30 BP 136/92 H 11/27/19 07:30 Pulse Ox 96 11/27/19 07:30 Labs Result diagrams: 11/25/19 18:15 11/27/19 06:35 Labs: Laboratory Results - last 24 hr 11/25/19 11/26/19 11/27/19 19:55 12:25 06:35 Sodium 137 Potassium 4.0 D Chloride 105 Carbon Dioxide 23.4 Anion Gap 8.6 BUN 11 Creatinine 0.70 Estimated GFR/1.73 m2 >= 60.00 Glucose 112 H Calcium 7.7 L Magnesium 1.7 L Stl C.difficile Tox PCR Negative COVID-19 PCR Negative Nasopharyn COVID-19 PCR Not Applicable Ref Test Perform Site [facility] lab
--- NOTE | 2019-11-27 13:04 | W.INDIABCONS ---
Date of service: 11/27/19 Time of Service: 13:05 Diabetes Inpatient Consult DESCRIPTION/ASSESSMENT: 74 year old female admitted with dehydration, hypokalemia secondary to diarrhea and poor intake s/p radiation and chemo for anal cancer. BMI 35, has been stable > 1 year per pt. Finished radiation on 11/18/19 and health has been declining since then. Met with Ana today. She reports diarrhea again this morning and feels very drained, no hunger. Marinol started. She is willing to supplement intake with ensure clear at meals. Reviewed nutrient needs for weight stability. Estimated Needs: 3083-5342 kcal, 68-78 g protein. INTERVENTION: regular meal plan ensure clear BID (adds additional 40 kcal, 30 g protein) PLAN: Continue with meal plan, supplement withi ensure clear for added protein intake for wound healing. will continue to monitor po intake, labs and weight. Time Spent in Nutritional Counseling and Treatment: 15 min spent face to face
--- NOTE | 2019-11-27 13:06 | PDOC.CMPRO ---
- If Service Date Differs Date of service: 11/27/19 Time of Service: 13:06 Care Management Progress Note S/O: Ana was lying in bed when CM met with her. She reported that she was feeling better today. She stated that, per provider, once she is able to tolerate her diet and have less frequent stools, she may be ready for discharge. CM brought her a word search book from the activity cart, at her request. Ana met with Palliative care today to discuss goals of care. CM will continue to follow. A: Ana is a 74 year old female admitted to [facility] on 11/25/19 with Failure to Thrive. P: Anticipate Ana will return home with new orders for HH RN through [place], coordinated by [facility]. Her family will transport her home via private vehicle when ready. She will follow up with her PCP and discharge plan of care. CM will continue to follow.
--- NOTE | 2019-11-27 14:06 | PT.INTREAT ---
Date of service: 11/27/19 Time of Service: 14:07 PT Notes Visit Reasons: FAILURE TO THRIVE Inpatient Physical Therapy Treatment Note [facility] Date: 11/27/2019 PRECAUTIONS: Fall, Activity as Tolerated SUBJECTIVE: Ana states that she is feeling the same today. She reports that she has been up and down to the commode multiple times this morning and this afternoon. OBJECTIVE: Patient experienced LOB x1 in a.m., in standing position, performing small dynamic UE movements, requiring Max x2 for recovery. No c/o dizziness or lightheadedness with LOB. PAIN: No c/o pain BED MOBILITY/TRANSFERS Supine-sit: S in a.m.; I in p.m. Sit-supine: S in a.m.; I in p.m Sit-stand: SBA Stand-sit: SBA Bed-Chair: SBA Chair-bed: SBA GAIT Assistive Device: FWW Weight bearing: Full Assist: CGA Distance: 35' x2 Deviation: C/o increased fatigue THEREX: Patient was instructed in a LE strengthening and stabilization program in a supine position this morning, and a resisted UE and LE strengthening program, while seated at EOB, this afternoon. She was issued 2# ankle weights and yellow Theraband for exercise completion, which she tolerated well. See flow sheet for specific exercise and repetitions. TOILETING: Patient toileted independently ASSESSMENT: Patient tolerated session well, although with c/o increased fatigue with activity. She was able to tolerate a progression in her ther ex program, tolerating the addition of resistance to UE and LE exercises. PLAN: Continue with global strengthening for progression toward safe baseline level of function TREATMENT CODE/TIME: Session 1: 25 minutes; [id number], [id number] Session 2: 20 minutes; 84019
[2019-11-27 15:08] VITALS: BP 126/67; PULSE 85; RESP 18; TEMP 36.7; O2SAT 96
[2019-11-27] MEDS: oxyCODONE 5 MG TAB PO (17:27)
[2019-11-27 18:45] VITALS: BP 126/72; PULSE 80; RESP 17; TEMP 36.4; O2SAT 95
[2019-11-27 22:50] VITALS: BP 138/79; PULSE 72; RESP 18; TEMP 36.8; O2SAT 97
[2019-11-28] MEDS: Cholestyramine/Aspartame PKT 1 EACH PO ×3 (06:41→19:45)
[2019-11-28 07:09] LABS: Abs Immature Grans 0.19 10^3/uL (0.0-0.06); Absolute Basophil Count 0.01 10^3/uL (0.0-0.2); Absolute Lymphocyte Count 0.53 10^3/uL (1.2-3.4); Absolute Monocyte Count 0.66 10^3/uL (0.1-0.8); Absolute Neutrophil Count 2.58 10^3/uL (1.2-6.7); Basophils % 0.3; HCT 29.6 % (36.0-46.0); HGB 9.9 g/dL (11.2-15.7); Immature Grans % 4.8; Lymphocytes % 13.4; MCH 30.9 pg (27.0-33.0); MCHC 33.4 % (32.0-36.0); MCV 92.5 fL (80-95); MPV 9.7 fL (8.0-11.0); Monocytes % 16.6; Neutrophils % 64.9; Nucleated RBC 0 %; RDW 21.1 % (11.7-14.6); RDW-SD 68.5 fL; WBC 3.97 10^3/uL (4.4-10.8)
[2019-11-28 07:14] LABS: Anion Gap 7.9 mmol/L (3-11); BUN 9 mg/dL (7-18); CO2 22.1 mmol/L (21.0-32.0); CREATININE 0.63 mg/dL (0.55-1.02); Calcium 7.3 mg/dL (8.5-10.1); Chloride 105 mmol/L (98-107); Glucose 77 mg/dL (74-106); Potassium 4.3 mmol/L (3.5-5.1); Sodium 135 mmol/L (136-145)
[2019-11-28 07:33] LABS: Diff Comment RBC Morph Reviewed; Platelet Count 98 10^3/uL (130-400)
[2019-11-28 07:34] LABS: Anisocytosis 3+; Poikilocytes 1+; Polychromasia Present
[2019-11-28] MEDS: Enoxaparin 40 MG/0.4 ML SYR SC (07:43)
[2019-11-28] MEDS: Acetaminophen 500 MG TAB 1000 MG PO (07:44)
[2019-11-28] MEDS: Vitamin E 400 UNITS CAP PO (07:44)
[2019-11-28] MEDS: Magnesium Gluconate 500 MG TAB PO (07:44)
[2019-11-28] MEDS: Dronabinol 2.5 MG CAP PO ×2 (07:44→19:44)
[2019-11-28] MEDS: Folic Acid 1 MG TAB PO (07:44)
[2019-11-28] MEDS: Potassium Chloride 20 MEQ TABCR PO ×2 (07:44→19:45)
[2019-11-28] MEDS: Cholecalciferol (Vitamin D3) 1,000 UNIT TAB 1000 UNITS PO (07:44)
[2019-11-28] MEDS: Loperamide 2 MG CAP PO ×4 (07:44→23:00)
[2019-11-28 07:48] VITALS: BP 133/84; PULSE 87; RESP 16; TEMP 36.3; O2SAT 97
[2019-11-28] MEDS: POTASSIUM CHLORIDE/0.9% NACL 1,000 ML 100 MEQ IV (09:43)
--- NOTE | 2019-11-28 10:23 | PGE_ITS ---
Date of Service Date of service: 11/28/19 Time of Service: 10:23 Assessment and Plan Assessment and plan (1) Diarrhea: Status: Acute Assessment and plan: C. difficile screen was negative. Despite the use of Imodium and Questran she still has diarrhea. Is more grainy than liquid at this time but still not forming solid BMs. I will add Metamucil to the regimen to try to thicken her stools. At this time she is not prepared to return home she is still weak and deconditioned and if she sent home in her current state she will become azotemic and hypokalemic again. I had placed the patient on magnesium gluconate for supplementation to prevent hypomagnesemia however the magnesium gluconate may be contributing to her diarrhea. I have since discontinued it. I will get CT of her abdomen and pelvis. Qualifiers: Diarrhea type: unspecified type Qualified Code(s): R19.7 - Diarrhea, unspecified (2) Intertrigo: Status: Acute Assessment and plan: Pharmacy has formulated a barrier paste to protect her skin. (3) Anal cancer: Status: Acute Assessment and plan: continue w/ topical barrier cream to her perianal (4) Acute hypokalemia: Status: Acute Assessment and plan: Hypokalemia has resolved with IV and oral supplementation. Continue oral supplementation along with daily monitoring of her labs. (5) Generalized weakness: Status: Acute Assessment and plan: physical therapy consulted to assess her strength/gait (6) Rheumatoid arthritis: Status: Chronic Assessment and plan: currently stable/controlled. no joint swelling. Patient has been off her MTX and Plaquenyl since the beginning of her radiation and chemotherapy treatments Subjective Subjective Interval history since last seen: Patient is still stooling and having diarrhea despite the use of Imodium and Questran. No vomiting but some nausea. 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 She is in no distress but has been uncomfortable and suffer from generalized weakness. Lungs are clear to auscultation Heart is regular rate and rhythm Abdomen soft w/ some periumbilical tenderness, nondistended normal active bowel sounds. Objective Last Vital Signs Temp 36.3 C L 11/28/19 07:48 Pulse 87 11/28/19 07:48 Resp 16 11/28/19 07:48 BP 133/84 11/28/19 07:48 Pulse Ox 97 11/28/19 07:48 Laboratory Results - last 24 hr 11/28/19 11/28/19 06:27 06:27 WBC 3.97 L RBC 3.20 L Hgb 9.9 L Hct 29.6 L MCV 92.5 MCH 30.9 MCHC 33.4 RDW 21.1 H Plt Count 98 L MPV 9.7 Immature Gran % 4.8 Neutrophils % 64.9 Lymphocytes % 13.4 Monocytes % 16.6 Eosinophils % 0.0 Basophils % 0.3 Nucleated RBC % 0 Absolute Neutrophils 2.58 Absolute Lymphocytes 0.53 L Absolute Monocytes 0.66 Absolute Eosinophils 0.00 Absolute Basophils 0.01 RBC Morphology See below Polychromasia Present Poikilocytosis 1+ Anisocytosis 3+ Sodium 135 L Potassium 4.3 Chloride 105 Carbon Dioxide 22.1 Anion Gap 7.9 BUN 9 Creatinine 0.63 Estimated GFR/1.73 m2 >= 60.00 Glucose 77 Calcium 7.3 L Magnesium 2.0
--- NOTE | 2019-11-28 10:44 | PT.INNT ---
Date of service: 11/28/19 Time of Service: 10:45 PT Notes Visit Reasons: FAILURE TO THRIVE 11/28/2019 Patient refused morning PT session, stating I just had another explosion, I don't know when I'll be ready for you. Could we try after lunch? Nursing alerted. Will attempt to resume PT services this afternoon.
[2019-11-28] MEDS: Psyllium PKT 1 EACH PO ×2 (11:10→19:45)
--- NOTE | 2019-11-28 13:05 | PTTR_ITS ---
Date of service: 11/28/19 Time of Service: 13:05 PT Notes Visit Reasons: FAILURE TO THRIVE Inpatient Physical Therapy Treatment Note [facility] Date: 11/28/2019 PRECAUTIONS: Fall, activity as tolerated SUBJECTIVE: Ana reports that she continues to have diarrhea, stating that she will not be going home today. She reports that she is not feeling very well today, although is agreeable to participating in PT this afternoon. OBJECTIVE: PAIN: Patient complained of discomfort in R side musculature with resisted seated marches BED MOBILITY/TRANSFERS Sit-stand: SBA Stand-sit: SBA Bed-Chair: SBA Chair-bed: SBA GAIT Assistive Device: FWW Weight bearing: Full Assist: CGA Distance: 50' x2 Deviation: Slow pace, c/o increased fatigue THEREX: Patient was instructed in a resisted UEs and LE strengthening program, performed in a seated position, as per flow sheet. Patient was able to tolerate a progression in her ther ex program today, tolerating increased repetitions for most exercises. Patient requires verbal cueing and occasional visual cueing for appropriate exercise performance. ASSESSMENT: Patient tolerated session well, although with complaints of increased fatigue with activity. She was able to tolerate a progression in her ther ex program, tolerating increased repetitions. She would benefit from continued global strengthening as well as gait training, and neuro reeducation for improved mobility and safety, and continued progression towards modified- independent level of function. PLAN: Continue with global strengthening and gait training for improved safety and ability with mobility. TREATMENT CODE/TIME: 25 minutes; 54097, 57585
--- NOTE | 2019-11-28 14:39 | CMPROGNOTE_ITS ---
- If Service Date Differs Date of service: 11/28/19 Time of Service: 14:39 Care Management Progress Note S/O: Ana was sitting up in her chair when CM met with her. She reported that she was feeling discouraged today, as she was hoping to return home. She agrees that it is in her best interest to remain at [facility]. She continues to work with PT. CM will continue to follow. A: Ana is a 74 year old female admitted to [facility] on 11/25/19 with Failure to Thrive. P: Anticipate Ana will return home with new orders for HH RN through [place], coordinated by [facility]. Her family will transport her home via private vehicle when ready. She will follow up with her PCP and discharge plan of care. CM will continue to follow.
[2019-11-28] MEDS: Breeza Beverage 473 ML BTL PO ×2 (15:49→15:50)
[2019-11-28] MEDS: Omnipaque 350 MG/ML 50 ML BTL PO (15:49)
[2019-11-28 16:09] VITALS: BP 152/98; PULSE 89; RESP 18; TEMP 36.5; O2SAT 98
[2019-11-28] MEDS: Omnipaque 350 MG/ML 100 ML BTL IJ (17:12)
[2019-11-28] MEDS: Normal Saline - Diluent 50 ML VIAL IV (17:12)
--- NOTE | 2019-11-28 17:15 | DI.CT_ITS ---
EXAM: CT ABDOMEN PELVIS W CLINICAL HISTORY: diarrhea, abdominal pain TECHNIQUE: Imaging Protocol: Axial computed tomography images with coronal and sagittal reformatted images were created and reviewed CONTRAST MATERIAL: Intravenous: Omnipaque 350 Contrast volume:100 mL Oral: Yes COMPARISON: CT CT CHEST PE CTA from 10/16/2019 FINDINGS: ABDOMEN: Lung Bases: Normal where visualized. Liver: Diffuse decreased attenuation of the liver consistent with fatty infiltration. No measurable mass. Portal, Superior Mesenteric, and Splenic Veins: Unremarkable. Gallbladder and Biliary Tract: No radiodense calculus or dilation. Pancreas: Normal density, no abnormal calcifications or inflammatory process. Spleen: Normal. There is a 1 cm peripherally calcified splenic artery aneurysm. Adrenals: No masses seen. Kidneys: Normal size, contour and axis. No radiodense stones or obstructive uropathy. There is an ind eterminate 1 cm lesion in the midpole of the right kidney. Abdominal Aorta: Abdominal portion non-dilated. Atherosclerosis. Bowel: No evidence of obstruction. Mild bowel wall thickening the distal small bowel suspicious for an enteritis. Mild wall thickening seen in the right colon. A mild colitis cannot be excluded. Anderson endix is unremarkable. Small hiatal hernia. Diverticulosis in the sigmoid colon but no evidence of a cute diverticulitis. Peritoneal Cavity: No ascites, collection or mesenteric inflammatory response. Lymph Nodes: Within normal limits. Bones: Degenerative changes. Soft Tissues: Mild diffuse edema in the soft tissues. There is skin thickening noted in the left ulises ast. PELVIS: Bladder: Incompletely distended but no gross abnormality. Reproductive Organs: Status post hysterectomy. Lymph Nodes: Within normal limits. Bones: Degenerative changes. IMPRESSION: 1. Findings of a distal enteritis without evidence of obstruction. 2. Findings suspicious for mild right colitis. 3. Skin thickening of the left breast. Please correlate clinically. 4. 1 cm indeterminate intermediate density in the medial midpole of the right kidney. Follow-up is r ecommended. This may represent a precontrast and postcontrast MRI. 5. Mild cellulitis. RADIATION DOSE DELIVERED: 1,270.95mGy.cm Total DLP DATA REPOSITORY: All CT scans at this facility are submitted to the National Radiology Data Registry (NRDR) Dose Index Registry (DIR) with the [employer] (A[employer]). RADIATION OPTIMIZATION: All CT scans at this facility use at least one of these dose optimization te chniques: automated exposure control; mA and/or kV adjustment per patient size (includes targeted exa ms where dose is matched to clinical indication); or iterative reconstruction.
[2019-11-28] MEDS: POTASSIUM CHLORIDE/0.9% NACL 1,000 ML 80 MEQ IV (23:00)
[2019-11-28 23:07] VITALS: BP 135/77; PULSE 82; RESP 17; TEMP 37.2; O2SAT 96
[2019-11-29 06:52] LABS: Anion Gap 8.7 mmol/L (3-11); BUN 8 mg/dL (7-18); CO2 22.3 mmol/L (21.0-32.0); CREATININE 0.63 mg/dL (0.55-1.02); Calcium 7.5 mg/dL (8.5-10.1); Chloride 102 mmol/L (98-107); Glucose 70 mg/dL (74-106); Magnesium 1.9 mg/dL (1.8-2.4); Potassium 4.3 mmol/L (3.5-5.1); Sodium 133 mmol/L (136-145)
[2019-11-29 07:29] VITALS: BP 120/73; PULSE 83; RESP 18; TEMP 36.5; O2SAT 98
[2019-11-29] MEDS: Dronabinol 2.5 MG CAP PO ×2 (08:39→20:06)
[2019-11-29] MEDS: Cholecalciferol (Vitamin D3) 1,000 UNIT TAB 1000 UNITS PO (08:39)
[2019-11-29] MEDS: Loperamide 2 MG CAP PO (08:39)
[2019-11-29] MEDS: Vitamin E 400 UNITS CAP PO (08:39)
[2019-11-29] MEDS: Potassium Chloride 20 MEQ TABCR PO ×2 (08:39→20:06)
[2019-11-29] MEDS: Folic Acid 1 MG TAB PO (08:40)
[2019-11-29] MEDS: Psyllium PKT 1 EACH PO ×3 (10:30→20:12)
--- NOTE | 2019-11-29 11:25 | PTTR_ITS ---
Date of service: 11/29/19 Time of Service: 10:50 PT Notes Visit Reasons: FAILURE TO THRIVE Inpatient Physical Therapy Treatment Note [facility] Date: 11/29/2019 PRECAUTIONS:Fall, Standard, Activities as tolerated SUBJECTIVE: Stated she felt SOB with ambulation today. Indicated she has not had to use O2 supplement in the past. This was reported to nursing staff. SOB complaint passed quickly once back to chair. OBJECTIVE: PAIN: No reported pain. BED MOBILITY/TRANSFERS Up in chair when I arrived to patient's room. Sit-stand: SBA Stand-sit: SBA GAIT Assistive Device: FWW Weight bearing: Full Assist: CGA Distance: 40ft x 1 THEREX: Able to perform seated ankle pumps/ heel raises x 10 reps, 2.5# ankle weights with LAQs, hip flexion, hip abd/add for 12 reps each and UE yellow t- band resisted shoulder horizontal abd/ rows, 2# dumbbell resisted bicep curls and 0# resisted shoulder flexion within pain free ROM x 10-12 reps each. ASSESSMENT: Tolerated all but ambulation well today. Despite complaints of SOB with ambulation she recovered quickly once in seated position and did not complain of SOB with exercises. PLAN: Continue with current POC as patient is able to tolerate. Will monitor O2 stats at next session if need. TREATMENT CODE/TIME: 84327m6, [id number], 10:50 to 11:15 (25')
[2019-11-29] MEDS: Cholestyramine/Aspartame PKT 1 EACH PO ×3 (12:08→22:10)
--- NOTE | 2019-11-29 12:16 | W.PM.PROGNOT ---
Date of Service Date of service: 11/29/19 Time of Service: 12:17 Assessment and Plan Assessment and plan (1) Diarrhea: Status: Acute Assessment and plan: CT abd/pelvis last PM showed evidence of distal enteritis and mild R colitis. This is likely d/t radiation txs. Her stools were improving in consistency. May have had some setback d/t oral contrast. Cont cholestyramine and prn lomotial. Qualifiers: Diarrhea type: unspecified type Qualified Code(s): R19.7 - Diarrhea, unspecified (2) Rheumatoid arthritis: Status: Chronic Assessment and plan: Is off her methotrexate and Plaquenil while on oral chemotx. Stable. (3) Intertrigo: Status: Acute Assessment and plan: Cont topical barrier. (4) Generalized weakness: Status: Acute Assessment and plan: Cont to encourage oral intake Cont PT (5) Anal cancer: Status: Acute Assessment and plan: She has a compounded ointment that she uses that has a steroid and lidocaine as components. She uses this BID. Can use viscous lidocaine Q3hrs prn as well. She is continuing oral chemotx and has completed her course of radiation tx. (6) Acute hypokalemia: Status: Acute Assessment and plan: Resolved. Cont to monitor Subjective Subjective Patient reports: tolerating a regular diet (Does state that she feels full readily ) and diarrhea (Several small loose stools overnight; did have po contrast for CT abd last PM); denies shortness of breath and fever Exam Const General: cooperative and no acute distress Nutritional Appearance: obese Orientation: alert and oriented to person Resp Effort & Inspection: normal respiratory effort Auscultation: clear to auscultation bilaterally Cardio Jugular venous pressure: no JVD Rate: regular rate Rhythm: regular rhythm Heart Sounds: S1 normal and S2 normal GI Palpation: soft Percussion: normal to percussion Auscultation: normal bowel sounds Extrem General: no clubbing, cyanosis or edema Objective Last Vital Signs Temp 36.5 C 11/29/19 07:29 Pulse 83 11/29/19 07:29 Resp 18 11/29/19 07:29 BP 120/73 11/29/19 07:29 Pulse Ox 98 11/29/19 07:29 Laboratory Results - last 24 hr 11/29/19 06:20 Sodium 133 L Potassium 4.3 Chloride 102 Carbon Dioxide 22.3 Anion Gap 8.7 BUN 8 Creatinine 0.63 Estimated GFR/1.73 m2 >= 60.00 Glucose 70 L Calcium 7.5 L Magnesium 1.9
--- NOTE | 2019-11-29 13:43 | PDOC.CMPRO ---
- If Service Date Differs Date of service: 11/29/19 Time of Service: 13:43 Care Management Progress Note S/O: Ana remains inpatient, she continues to need IV fluids and still having multiple loose bowel movements. She is not ready for discharge at this time. A: Ana is a 74 year old female admitted to [facility] on 11/25/19 with Failure to Thrive with a history of anal cancer, with radiation that started in September 2019. P: Anticipate Ana will return home with new orders for HH RN through [facility], coordinated by HAYLEY. Her family will transport her home via private vehicle when ready. She will follow up with her PCP and discharge plan of care. [facility] will continue to follow.
[2019-11-29 14:30] LABS: Bilirubin Negative (Negative); Blood Negative (Negative); Clarity Clear (Clear); Glucose Negative (Negative); Ketones Negative (Negative); Leukocyte Esterase Trace (Negative); Nitrite Negative (Negative); Specific Gravity 1.015 (1.005-1.025); Urobilinogen 0.2 EU/dL (Up TO 0.2)
[2019-11-29 14:47] LABS: Bacteria Moderate HPF (Negative); C & S Indicated? Yes; Casts Negative LPF (Negative); Crystals Negative HPF (Negative); Epithelial Cells Few HPF (Negative); Mucus Trace (Negative); Other Cells Few Transitional (Negative); RBC 0-2 HPF (0-2)
[2019-11-29 15:01] VITALS: BP 129/75; PULSE 84; RESP 18; TEMP 36.5; O2SAT 99
[2019-11-29] MEDS: Acetaminophen 500 MG TAB 1000 MG PO (20:08)
[2019-11-30] MEDS: Loperamide 2 MG CAP PO ×2 (02:17→08:25)
[2019-11-30 03:40] VITALS: BP 135/69; PULSE 73; RESP 17; TEMP 36.4; O2SAT 95
[2019-11-30] MEDS: Cholestyramine/Aspartame PKT 1 EACH PO ×2 (06:51→11:27)
[2019-11-30 07:17] LABS: Anion Gap 8.2 mmol/L (3-11); BUN 8 mg/dL (7-18); CO2 24.8 mmol/L (21.0-32.0); CREATININE 0.77 mg/dL (0.55-1.02); Calcium 7.8 mg/dL (8.5-10.1); Chloride 102 mmol/L (98-107); Glucose 81 mg/dL (74-106); Magnesium 1.9 mg/dL (1.8-2.4); Potassium 4.1 mmol/L (3.5-5.1); Sodium 135 mmol/L (136-145)
--- NOTE | 2019-11-30 08:11 | CMPROGNOTE_ITS ---
- If Service Date Differs Date of service: 11/30/19 Time of Service: 08:11 Care Management Progress Note S/O: Ana remains inpatient, she had several loose stools over night. IV fluids have been discontinued, still in need of medication adjustment related to symptom management. She will be discharged home when medically ready with new home health services. A: Ana is a 74 year old female admitted to [facility] on 11/25/19 with Failure to Thrive with a history of anal cancer, with radiation that started in September 2019. P: Anticipate Ana will return home with new orders for HH RN through [facility] [place], coordinated by HAYLEY. Her family will transport her home via private vehicle when ready. She will follow up with her PCP and discharge plan of care. [facility] will continue to follow.
[2019-11-30] MEDS: Dronabinol 2.5 MG CAP PO (08:22)
[2019-11-30] MEDS: Cholecalciferol (Vitamin D3) 1,000 UNIT TAB 1000 UNITS PO (08:22)
[2019-11-30] MEDS: Folic Acid 1 MG TAB PO (08:22)
[2019-11-30] MEDS: Potassium Chloride 20 MEQ TABCR PO (08:22)
[2019-11-30] MEDS: Vitamin E 400 UNITS CAP PO (08:22)
[2019-11-30] MEDS: Psyllium PKT 1 EACH PO (08:22)
[2019-11-30 08:27] VITALS: BP 136/66; PULSE 78; RESP 20; TEMP 36.9; O2SAT 96
--- NOTE | 2019-11-30 09:03 | PDOC.HHF2F_ITS ---
Home Health Certification Home Health Certification: 1. Encounter Date and Reason I certify that JH ZHOU was seen by Jaspreet Kaur MD on 11/30/19 and that I had a [id number] encounter with this patient that meets the physician face to face encounter requirements. 2. Clinical Findings Supporting Skilled Need and Homebound Status I certify that home health services are medically necessary, include either intermittent shelter and/or physical/speech therapy, and that this patient is homebound in that absences from the home require considerable and taxing effort and are infrequent or of short duration, or are attributable to the need to receive medical care. [X] (a) Attached documentation from encounter provides clinical findings supporting skilled need and homebound status (including what assistance patient requires to leave the home). 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 Monitoring for electrolyte imbalances, skin integrity, nutritional status. Physical Therapy: Speech Therapy: Homebound: Unable to safely ambulate out of home without assistance. 3. Certification and Authentication I certify that I composed the above information based on my clinical judgement relating to this patient's medical condition and, if applicable, clinical findings communicated to me by the NPP or inpatient physician who performed the Home Health Referral. All further orders will be obtained through __Corby Tony (Community Based Physician - PCP)
--- NOTE | 2019-11-30 09:05 | W.PM.DS.N ---
Date of service: 11/30/19 Time of Service: 09:05 DS: Diagnosis Discharge Diagnosis (1) Diarrhea: Status: Acute (2) Rheumatoid arthritis: Status: Chronic (3) Intertrigo: Status: Acute (4) Generalized weakness: Status: Acute (5) Anal cancer: Status: Acute (6) Acute hypokalemia: Status: Acute (7) Radiation colitis: Status: Acute Discharge Plan Disposition Patient Disposition: HOME W/HOME HEALTH SERVICE Condition: Stable Discharge Details Reason For Visit: FAILURE TO THRIVE, radiation colitis Admit Date/Time: 11/27/19 09:43 Admit Provider: Jaspreet Kaur Attending Provider: Jaspreet Kaur Primary Care Provider: Corby Tony [facility] Hospital Course: This is a 74 yo female with a h/o anal cancer and depression. She is currently undergoing treatment at [facility]. She just completed a course of radiation and continues on oral chemotherapy tx. She has endorsed generalized weakness for several weeks, worsening over the last 2-3 days. She has been unable to get out of bed w/o assistance recently. Her daughter reports they have been placing pads under her to soak urine rather than risk her falling while assisting her to the bathroom. She reports her oral intake has been poor / has a lack of appetite. On the day of admission she only ate a piece of toast and took sips of liquids. She has had no F/C, emesis, diarrhea. Her WBC count was normal; previously had been neutropenic. Hgb 11.2. K low at 3.0. Na mildly low at 133. Calcium low at 7.8. Mg 1.8. Albumin low; 2.0. With a persistence of her frequent loose stools, questran and prn immodium were initiated. A CT of the abd/pelvis was obtained that showed lower enteritis and R sided mild colitis. Marinol was initiated but she then explained that an appetite wasn't the problem, rather early satiety was. She does take prn reglan at home. Her intake on occasion during this stay did improve marginally. Her UA was initially positive but grew mixed organisms, none in an amount of 100,000 cfu's or more. A repeat did show 2 gram negative rods growing; 50,000-100,000 cfu's both. The results were prelimary and final ID and sensitivities pending. Since she was asymptomatic and the growth was less than 100,000 cfu's the decision was made not to treat with antibiotics with concerns that an antibiotic could worsen her diarrhea. Her K+ corrected. She was given a requisition for an outpt BMP to be drawn in 3 days. PT worked with patient. Wound care consulted for her irritated perideum that her oncologist has prescribed lidocaine 4%, ketoconozole 2%, Hydrocortisone 1% and triple antibiotic (ointment which have been compounded together). This compound was continued BID and dibucaine topical prn was added. Palliative care consulted and they discussed her situation; her cancer is deemed curable and she will continue with oral chemotherapy under her oncologists care. If her diarrhea doesn't soon start to improve more, a tincture of opiod was recommended. She will d/c with home health nursing to monitor her diarrhea, electrolyte status, skin integrity and general functional abilities. Home Meds and New Rx's Prescriptions: New Prevalite 4 gram Powder In Packet 1 ea PO 0700,1100,1600,2000 Qty: 60 RF: 0 dibucaine 1 % Ointment 0 g topical Q3H PRN PRNQty: 0 RF: 0 loperamide 2 mg Capsule 2 - 4 mg PO DIRECTED PRN (Reason: Diarrhea) Qty: 0 RF: 0 Metamucil Sugar-Free (aspart) 3.4 gram/5.8 gram Powder 1 ea PO QID Qty: 0 RF: 0 Non-Formulary Medication 0 ea topical BID Qty: 0 RF: 0 Continued prochlorperazine maleate 10 mg Tablet 10 mg PO Q6H PRNRF: 0 acetaminophen 500 mg Tablet 1,000 mg PO Q6H PRNRF: 0 famotidine 20 mg Tablet 20 mg PO BID PRNRF: 0 docusate sodium 100 mg Capsule 100 mg PO BID PRNRF: 0 multivitamin with minerals Tablet 1 tab PO DAILY RF: 0 vitamin E 400 unit Capsule 400 unit PO DAILY RF: 0 folic acid 800 mcg Tablet 0.8 mg PO DAILY RF: 0 metoclopramide HCl 10 mg Tablet 5 mg PO Q6H PRNRF: 0 escitalopram oxalate 20 mg Tablet 20 mg PO DAILY RF: 0 bupropion HCl 150 mg Tablet Extended Release 24 Hr 150 mg PO DAILY RF: 0 cholecalciferol (vitamin D3) 25 mcg (1,000 unit) Tablet 25 mcg PO DAILY RF: 0 oxycodone 10 mg tablet See Rx Instructions .ROUTE .COMPLEX RF: 0 Discontinued polyethylene glycol 3350 17 gram/dose Powder 17 g PO DAILY PRNRF: 0 Discharge Instructions Instructions: Chronic Diarrhea (GEN) Activity:: Activity as Tolerated Equipment/Supplies:: No Equipment Needed Diet:: As Tolerated Discharge Orders Other Ambulatory Orders: Basic Metabolic Panel (Routine) Timeframe: 3 Days Location: None Selected Ordered By: Jaspreet Kaur DS: Summary Status at Discharge Functional status at discharge: independent ambulation Overall status at discharge: patient is progressing back to baseline Mental Status: mental status grossly normal Speech and Movement: speech and movement normal Mood: congruent mood Affect: blunted Exam Const General: cooperative and no acute distress Nutritional Appearance: obese Eyes Sclera: sclerae normal Pupils: PERRL Resp Effort & Inspection: normal respiratory effort Auscultation: clear to auscultation bilaterally Cardio Jugular venous pressure: no JVD Rate: regular rate Rhythm: regular rhythm Heart Sounds: S1 normal and S2 normal GI Palpation: soft Auscultation: normal bowel sounds Extrem General: no clubbing, cyanosis or edema and no calf tenderness Psych Mental Status: mental status grossly normal Speech and Movement: speech and movement normal Mood: congruent mood Affect: blunted DS: Data Vitals/I&O Vitals and I&O: Vital Signs Temperature 36.9 C 11/30/19 08:27 Temperature Source Temporal Artery Scan 11/30/19 08:27 Pulse 78 11/30/19 08:27 Pulse Rhythm Regular 11/30/19 01:15 Pulse 82 11/25/19 20:38 Respiratory Rate 20 11/30/19 08:27 Respiratory Effort Non-Labored 11/30/19 01:15 Respiratory Depth Normal 11/30/19 01:15 Respiratory Pattern Normal 11/30/19 01:15 Blood Pressure 136/66 11/30/19 08:27 Blood Pressure Mean 70 11/25/19 19:16 Blood Pressure Position Supine 11/25/19 18:02 Pulse Oximetry 96 11/30/19 08:27 Oxygen Delivery Method Room Air 11/30/19 08:27 Oxygen Flow Rate 0 11/30/19 08:27 Pain Level 0 11/30/19 08:27 Comment 11/27/19 07:30 Intake & Output 11/29/19 11/29/19 11/30/19 11:59 23:59 11:59 Intake Total 1238.667 / 2018.667 780 / 2018.667 200 / 200 Output Total 1750 / 2550 800 / 2550 100 / 100 Balance -511.333 / -531.333 -20 / -531.333 100 / 100 Weight 91.7 kg 91.9 kg Intake: IV 998.667 / 998.667 Oral 240 / 1020 780 / 1020 200 / 200 Output: Urine 1750 / 2550 800 / 2550 100 / 100 Other: Urine Color Straw Pale Yellow Yellow Urine Appearance Clear Clear Clear Urine Odor Normal Normal Comment Three voids according to the patient. 2 voids. Stool Size Moderate Small Large Stool Characteristics Liquid Soft Soft Brown Liquid Liquid Brown Voiding Methods Bedside Commode Bedside Commode Bedside Commode Data Completed and Pending Labs on day of discharge: Labs from last 24 hours 11/30/19 11/29/19 06:27 14:15 Sodium 135 L Potassium 4.1 Chloride 102 Carbon Dioxide 24.8 Anion Gap 8.2 BUN 8 Creatinine 0.77 Estimated GFR/1.73 m2 >= 60.00 Glucose 81 Calcium 7.8 L Magnesium 1.9 Urine Color Yellow Urine Clarity Clear Urine pH 6.0 Ur Specific [place] 1.015 Urine Protein Negative Urine Ketones Negative Urine Blood Negative Urine Nitrite Negative Urine Bilirubin Negative Urine Urobilinogen 0.2 Ur Leukocyte Esterase Trace H Urine RBC 0-2 Urine WBC 10-20 H Ur Epithelial Cells Few Urine Crystals Negative Urine Bacteria Moderate Urine Casts Negative Urine Mucus Trace Urine Other Few transitional Ur Culture Indicated? Yes Urine Glucose Negative Preliminary micro results at discharge 11/29/19 14:15 Urine Culture - Preliminary Urine - Reflex from Ua Gram Negative Raffi Gram Negative Raffi#2 PFSH Social History Smoking/Tobacco Use Status: Never Alcohol Intake: current Alcohol Intake frequency: holidays/special occasions only Drug use: Never Substance use type: does not use Do you feel safe at home: Yes Do you feel safe in your relationship?: Yes
[2019-11-30] MEDS: Enoxaparin 40 MG/0.4 ML SYR SC (09:51)
--- NOTE | 2019-11-30 10:43 | PTTR_ITS ---
Date of service: 11/30/19 Time of Service: 09:40 PT Notes Visit Reasons: FAILURE TO THRIVE, radiation colitis Inpatient Physical Therapy Treatment Note [facility] Date: 11/30/2019 Requested to hold on PT due to going home today and wanting to conserve her energy for the transition. Front wheeled walker was adjusted by myself for patient via issuing by service bilingual patient support caseworker. To receive services upon discharge.
[2019-11-30] MEDS: Normal Saline Flush 10 ML SYR IVP (11:04)
[2019-11-30] MEDS: Heparin 500 UNITS/5 ML SYRINGE IVP (11:27)
--- NOTE | 2019-12-02 11:01 | PT.INDS ---
Date of service: 12/02/19 PT Notes Visit Reasons: FAILURE TO THRIVE, radiation colitis Physical Therapy Inpatient Discharge Summary Date: 12/02/2019 Dates of Service: 11/26/2019 through 11/29/2019 This is a clinical summary of care provided on the duration of dates listed above. No charge was made in the completion of this documentation. Referring Doctor: Jaspreet Kaur MD PT Orders: PT CONSULT: Eval/treat Precautions: Fall. Standard. Activity as tolerated. Patient Profile/Admitting Diagnosis: Ana is a 74-year female with anal carcinoma being treated by [facility] anza who presents to the ED on 12/09/2019 with complaints of generalized weakness that has started for a few weeks now with increasing inability to get out of bed. PMHX: Rheumatoid arthritis Intertrigo Social History/Home Situation: Ana lives in a private home without steps with and daughter. works twice a week which days helps out with her mom. She is independent with all mobility ADL performance without an assistive ambulatory device. She reports 1 fall in the past year. Equipment Owned/DME: Front wheel walker Subjective: NT. See most recent ACCOUNTING SYSTEM EXPERT notes. Objective: General Observation: NT. See most recent ACCOUNTING SYSTEM EXPERT notes. Mental Status: NT. See most recent ACCOUNTING SYSTEM EXPERT notes. Pain: NT. See most recent ACCOUNTING SYSTEM EXPERT notes. ROM: Right Upper Extremity: Shoulder Flexion allows only up to 90 degrees. Shoulder abduction allows only up to 90 degrees. Elbow flexion WFL. Wrist flexion WFL. Opening and closing of hand WFL. Left Upper Extremity: Shoulder Flexion allows only up to 90 degrees. Shoulder abduction allows only up to 90 degrees. Elbow flexion WFL. Wrist flexion WFL. Opening and closing of hand WFL. Right Lower Extremity: Hip flexion WFL. Hip abduction WFL. Knee flexion WFL. Ankle dorsiflexion WFL. Ankle plantarflexion WFL. Left Lower Extremity: Hip flexion WFL. Hip abduction WFL. Knee flexion WFL. Ankle dorsiflexion WFL. Ankle plantarflexion WFL. Strength: Right Upper Extremity: Shoulder flexors 3-/5. Shoulder abductors 3-/5. Elbow flexors 4/5. Elbow extensors 4/5. [place]man strong. Left Upper Extremity: Shoulder flexors 3-/5. Shoulder abductors 3-/5. Elbow flexors 4/5. Elbow extensors 4/5. [place] strong. Right Lower Extremity: Hip flexors 3+/5. Hip abductors 3+/5. Knee flexors 4-/5. Knee extensors 4-/5. Ankle dorsiflexors 4/5. Ankle plantarflexors 4/5. Left Lower Extremity:Hip flexors 3/5. Hip abductors 3/5. Knee flexors 4/5. Knee extensors 4/5. Ankle dorsiflexors 4-/5. Ankle plantarflexors 4-/5. Sensation: Intact as to pain and pressure on bilateral lower extremities. Bed Mobility/Transfers: Rolling standby assist Supine to sit standby assist Sit to supine standby assist Sit to stand standby assist Stand to sit standby assist Bed to chair standby assist Chair to bed standby assist Gait: 40 feet to 150 feet using FWW with CGA with varying levels of SOB and fatigue depending on her GI status as she has chronic diarrhea. Balance: Static Sitting: Normal Dynamic Sitting: Normal Static Standing: Fair Dynamic Standing: Fair Assessment: Ana continues to demonstrate functional decline requiring the use of front wheeled walker for safe mobility ADL performance, decreased activity tolerance, generalized weakness, increased risk due to admitting diagnosis. Ana is a 74-year female with anal carcinoma being treated by [facility] who presents to the ED on 12/09/2019 with complaints of generalized weakness that has started for a few weeks now with increasing inability to get out of bed. Patient continues to present with clinical signs and symptoms consistent with current/admitting diagnoses that have resulted to mobility limitations, gait instability, generalized weakness, and impairment of motor control as demonstrated by the following impairment level findings: 1. Decreased strength to be LE/UEs major muscle groups 2. Impaired standing balance 3. Impaired activity tolerance 4. Limitation of joint range of motion in B UEs 5. Anal pain discomfort weight bearing Impairments are continuing to contribute to the following functional limitations: 1. Dependent bed mobility skills 2. Increased dependence with transfers 3. Inability to safely ambulate without assistive device and physical assistance 4. Increase completion time for mobility ADL performance 5. Increased fall risk 6. Inability to negotiate steps alone safely Goals: Goals X1 week 1. Supine-Sit independent NOT MET 2. Sit-Supine independent NOT MET 3. Sit-Stand independent NOT MET 4. Stand-Sit independent NOT MET 5. Bed-Chair independent NOT MET 6. Chair-Bed independent NOT MET 7. Supervision gait on level surface with use of least restrictive device for at least 300 feet without report of pain nor dyspnea NOT MET 8. Supervision stair negotiation while holding onto bilateral rails for at least 10 steps without report of pain nor dyspnea NOT MET 9. Good static and dynamic standing balance/tolerance NOT MET DISCHARGE RECOMMENDATIONS: Patient will benefit from home health PT services in order to progress mobility level using least restrictive assistive ambulatory device, assess home safety, identify additional equipment needs, and establish a functional maintenance program that will increase ability of patient to remain at home. TREATMENT CODE/TIME: [place] Thank you for the opportunity to participate in the care of this patient. La [place] PT, DPT, CLT [facility] [place], [place]
--- NOTE | 2019-12-04 16:03 | DI.VRAD_ITS ---
PROCEDURE INFORMATION: Exam: CT Abdomen And Pelvis With Contrast Exam date and time: 11/28/2019 14:57 Age: 74 years old Clinical indication: Generalized; Patient HX: Diarrhea, abdominal pain TECHNIQUE: Imaging protocol: Computed tomography of the abdomen and pelvis with intravenous contrast. COMPARISON: No relevant prior studies available. FINDINGS: Lungs: Subcentimeter nodules in the lung bases statistically likely benign. Follow-up as per institutional protocol. No significant airspace consolidation. Mediastinal space: Small hiatal hernia. Liver: No mass. Gallbladder and bile ducts: No calcified stones. No ductal dilation. Pancreas: No ductal dilation. No masses. Spleen: No splenomegaly or focal lesions. Adrenals: No mass. Kidneys and ureters: 10 mm intermediate density mid right renal cortical structure cannot be completely characterized on this phase of imaging alone. Follow-up as per institutional protocol. No right hydronephrosis. No left hydronephrosis. Stomach and bowel: Mild low-density wall thickening in loops of mid to distal small bowel descending into the right pelvis without obstruction. Suspected mild right colitis. A mild proctitis is also possible. Mild wall thickening in the right colon superimposed on submucosal fat deposition. Mild distal diverticulosis without diverticulitis. Mild rectal wall thickening is also suspected. Appendix: No evidence of appendicitis. Intraperitoneal space: No free air. No significant fluid collection. Vasculature: Peripherally calcified 10 mm splenic artery probable true aneurysm, very low risk of rupture. Fusiform dilation of additional portions of the splenic artery are suspected. Atherosclerosis. Mild dilation of the infrarenal aorta. No evidence of rupture. Lymph nodes: No significantly enlarged lymph nodes. Urinary bladder: Unremarkable as visualized. Reproductive: Hysterectomy. Bones/joints: The bones are demineralized. Click degenerative Multilevel central canal and neuroforaminal stenosis in the lumbar spine. No acute fracture or subluxation. Soft tissues: Skin thickening is suggested in the left breast, partially seen. Mild thickening ventral abdominal pannus skin with minor infiltration of the underlying subcutaneous fat. IMPRESSION: 1. Mild mid to distal enteritis without obstruction. 2. Suspected mild right colitis. A mild proctitis is also possible. 3. Skin thickening is suggested in the left breast, partially seen. Clinical correlation is advised. Can be seen in cellulitis, sequela of radiation, malignancy. 4. 10 mm intermediate density mid right renal cortical structure cannot be completely characterized on this phase of imaging alone. Complicated cyst favored over mass. Follow-up as per institutional protocol. 5. Mild cellulitis or edema, ventral abdominal pannus. 6. Additional findings as described. Dictated and Authenticated by: Frida Schmidt MD. Ordering:[facility] Monse Rossi MD
== END 2019-11-30 12:06 | disposition home health service (06) | DRG 641 ==
LOC: ER 20:58 → MS 21:20
PROVIDERS: Internal Medicine; Admitting Provider Family Medicine; Emergency Provider Emergency Medicine; PCP Neuromusculoskeletal Medicine & OMM; Visit Provider Family Medicine
DX: E87.6 Hypokalemia (principal); K52.0 Gastroenteritis and colitis due to radiation; C21.0 Malignant neoplasm of anus, unspecified; R53.1 Weakness; Z66 Do not resuscitate; L30.4 Erythema intertrigo; M06.9 Rheumatoid arthritis, unspecified; F32.9 Major depressive disorder, single episode, unspecified; E66.9 Obesity, unspecified; L59.8 Other specified disorders of the skin and subcutaneous tissue related to radiation; Y84.2 Radiological procedure and radiotherapy as the cause of abnormal reaction of the patient, or of later complication, without mention of misadventure at the time of the procedure
CPT/HCPCS: 36591; 51701; 80048; 80053; 87077; 87493; 93005; 96360; 96361; 97110; 97162; 97530; 99222; 99225; 99232; 99233; 99239; 99255; 99285; J1650; U0003; 71046; 74177; 81003; 81015; 83735; 84484; 85025; 87086; 87186; 93010; 99219; 99284; G0378; J0131; J3480; J3490; Q9967

== ENCOUNTER 2019-12-05 05:11 | Outpatient (RCR) | payer MEDICARE, OTHER, SELFPAY | END 2019-12-20 23:59 | disposition home or self-care (01) | LOC: INF 05:11 | PROVIDERS: PCP Neuromusculoskeletal Medicine & OMM; Visit Provider Internal Medicine Hematology & Oncology | DX: Z53.9 Procedure and treatment not carried out, unspecified reason (principal) ==

== ENCOUNTER 2020-03-04 02:17 | Outpatient (RCR) | payer MEDICARE, OTHER, SELFPAY ==
[2020-03-04] MEDS: Heparin 500 UNITS/5 ML SYRINGE IV (10:18)
[2020-03-04] MEDS: Normal Saline Flush 10 ML SYR IVP (10:18)
[2020-03-04 10:19] LABS: Abs Immature Grans 0.02 10^3/uL (0.0-0.06); Absolute Basophil Count 0.02 10^3/uL (0.0-0.2); Absolute Eosinophil Count 0.03 10^3/uL (0.0-0.7); Absolute Monocyte Count 0.56 10^3/uL (0.1-0.8); Absolute Neutrophil Count 2.48 10^3/uL (1.2-6.7); Basophils % 0.4; Eosinophils % 0.6; HCT 37.7 % (36.0-46.0); HGB 12.2 g/dL (11.2-15.7); Immature Grans % 0.4; Lymphocytes % 35.3; MCH 29.9 pg (27.0-33.0); MCHC 32.4 % (32.0-36.0); MCV 92.4 fL (80-95); MPV 9.1 fL (8.0-11.0); Monocytes % 11.6; Neutrophils % 51.7; Nucleated RBC 0 %; Platelet Count 147 10^3/uL (130-400); RBC 4.08 10^6/uL (3.93-5.22); RDW 12.7 % (11.7-14.6); WBC 4.81 10^3/uL (4.4-10.8)
[2020-03-04 10:36] LABS: ALT 13 U/L (14-59); AST 17 U/L (15-37); Albumin 2.5 g/dL (3.4-5.0); Alkaline Phosphatase 72 U/L (46-116); Anion Gap 6.4 mmol/L (3-11); BUN 11 mg/dL (7-18); Bilirubin, Total 0.5 mg/dL (0.2-1.0); CO2 26.6 mmol/L (21.0-32.0); CREATININE 0.81 mg/dL (0.55-1.02); Calcium 8.4 mg/dL (8.5-10.1); Chloride 103 mmol/L (98-107); FREE T4 1.33 ng/dL (0.76-1.46); Glucose 102 mg/dL (74-106); Potassium 4.3 mmol/L (3.5-5.1); Sodium 136 mmol/L (136-145); TSH 2.76 uIU/mL (0.36-3.74); Total Protein 5.5 g/dL (6.4-8.2)
== END 2020-03-21 23:59 | disposition home or self-care (01) ==
LOC: INF 02:17
PROVIDERS: PCP Neuromusculoskeletal Medicine & OMM; Visit Provider Internal Medicine Hematology & Oncology
DX: C21.0 Malignant neoplasm of anus, unspecified (principal); R19.8 Other specified symptoms and signs involving the digestive system and abdomen; Z45.2 Encounter for adjustment and management of vascular access device; N30.00 Acute cystitis without hematuria
CPT/HCPCS: 36591; 80053; 83735; 84439; 84443; 85025

== ENCOUNTER 2020-04-16 04:31 | Outpatient (RCR) | payer MEDICARE, SELFPAY ==
[2020-04-16] MEDS: Normal Saline Flush 10 ML SYR IVP (14:18)
[2020-04-16] MEDS: Heparin 500 UNITS/5 ML SYRINGE (14:18)
[2020-04-16 14:30] LABS: Abs Immature Grans 0.01 10^3/uL (0.0-0.06); Absolute Basophil Count 0.02 10^3/uL (0.0-0.2); Absolute Eosinophil Count 0.04 10^3/uL (0.0-0.7); Absolute Lymphocyte Count 2.18 10^3/uL (1.2-3.4); Absolute Monocyte Count 0.71 10^3/uL (0.1-0.8); Absolute Neutrophil Count 2.59 10^3/uL (1.2-6.7); Basophils % 0.4; Eosinophils % 0.7; HCT 38.4 % (36.0-46.0); HGB 12.3 g/dL (11.2-15.7); Immature Grans % 0.2; Lymphocytes % 39.3; MCH 28.6 pg (27.0-33.0); MCV 89.3 fL (80-95); MPV 9.2 fL (8.0-11.0); Monocytes % 12.8; Neutrophils % 46.6; Nucleated RBC 0 %; Platelet Count 177 10^3/uL (130-400); RDW 13.3 % (11.7-14.6); RDW-SD 43.8 fL; WBC 5.55 10^3/uL (4.4-10.8)
[2020-04-16 14:43] LABS: ALT 12 U/L (14-59); AST 14 U/L (15-37); Albumin 2.7 g/dL (3.4-5.0); Alkaline Phosphatase 74 U/L (46-116); Anion Gap 5.4 mmol/L (3-11); BUN 8 mg/dL (7-18); Bilirubin, Total 0.5 mg/dL (0.2-1.0); CO2 28.6 mmol/L (21.0-32.0); CREATININE 0.7 mg/dL (0.55-1.02); Calcium 8.5 mg/dL (8.5-10.1); Chloride 101 mmol/L (98-107); FREE T4 1.11 ng/dL (0.76-1.46); Glucose 96 mg/dL (74-106); Potassium 4.4 mmol/L (3.5-5.1); Sodium 135 mmol/L (136-145); TSH 3.21 uIU/mL (0.36-3.74)
== END 2020-04-18 23:59 | disposition home or self-care (01) ==
LOC: INF 04:31
PROVIDERS: Nurse Practitioner Family; PCP Neuromusculoskeletal Medicine & OMM; Visit Provider Internal Medicine Hematology & Oncology
DX: R19.8 Other specified symptoms and signs involving the digestive system and abdomen (principal); N30.00 Acute cystitis without hematuria; C21.0 Malignant neoplasm of anus, unspecified; Z45.2 Encounter for adjustment and management of vascular access device
CPT/HCPCS: 36591; 80053; 83735; 84439; 84443; 85025

== ENCOUNTER 2020-07-09 04:49 | Outpatient (RCR) | payer MEDICARE, OTHER, SELFPAY ==
[2020-07-09 11:49] LABS: Abs Immature Grans 0.02 10^3/uL (0.0-0.06); Absolute Basophil Count 0.01 10^3/uL (0.0-0.2); Absolute Lymphocyte Count 0.83 10^3/uL (1.2-3.4); Absolute Monocyte Count 0.15 10^3/uL (0.1-0.8); Absolute Neutrophil Count 2.14 10^3/uL (1.2-6.7); Basophils % 0.3; HCT 32.9 % (36.0-46.0); HGB 11.1 g/dL (11.2-15.7); Immature Grans % 0.6; Lymphocytes % 26.3; MCH 29.8 pg (27.0-33.0); MCHC 33.7 % (32.0-36.0); MCV 88.4 fL (80-95); Monocytes % 4.8; Nucleated RBC 0 %; Platelet Count 182 10^3/uL (130-400); RBC 3.72 10^6/uL (3.93-5.22); RDW 16.2 % (11.7-14.6); RDW-SD 51.2 fL; WBC 3.15 10^3/uL (4.4-10.8)
[2020-07-09 12:11] LABS: ALT 17 U/L (14-59); AST 16 U/L (15-37); Albumin 3.2 g/dL (3.4-5.0); Alkaline Phosphatase 57 U/L (46-116); Anion Gap 6.2 mmol/L (3-11); BUN 14 mg/dL (7-18); Bilirubin, Total 0.5 mg/dL (0.2-1.0); CO2 28.8 mmol/L (21.0-32.0); CREATININE 0.7 mg/dL (0.55-1.02); Calcium 8.4 mg/dL (8.5-10.1); Chloride 101 mmol/L (98-107); FREE T4 1.18 ng/dL (0.76-1.46); Glucose 98 mg/dL (74-106); Magnesium 1.8 mg/dL (1.8-2.4); Potassium 4.4 mmol/L (3.5-5.1); Sodium 136 mmol/L (136-145); TSH 2.15 uIU/mL (0.36-3.74); Total Protein 6.1 g/dL (6.4-8.2)
[2020-07-09] MEDS: Heparin 500 UNITS/5 ML SYRINGE IV (12:30)
[2020-07-09] MEDS: Normal Saline Flush 10 ML SYR IVP (12:30)
[2020-07-12 09:54] LABS: IgA 199 mg/dL (85-499); IgG 713 mg/dL (610-1,616); IgM 21 mg/dL (35-242)
== END 2020-07-19 23:59 | disposition home or self-care (01) ==
LOC: INF 04:49
PROVIDERS: Internal Medicine Hematology & Oncology; PCP Neuromusculoskeletal Medicine & OMM; Visit Provider Nurse Practitioner Family
DX: C21.0 Malignant neoplasm of anus, unspecified (principal); Z79.899 Other long term (current) drug therapy; Z45.2 Encounter for adjustment and management of vascular access device; N30.00 Acute cystitis without hematuria; R19.8 Other specified symptoms and signs involving the digestive system and abdomen; M05.9 Rheumatoid arthritis with rheumatoid factor, unspecified
CPT/HCPCS: 36591; 80053; 82784; 83735; 84439; 84443; 85025

== ENCOUNTER 2020-08-05 00:39 | Outpatient (CLI) | payer MEDICARE, OTHER, SELFPAY ==
--- NOTE | 2020-08-05 | DI.CT_ITS ---
Exam(s) CT CHEST/ABD/PEL W EXAM: CT CHEST/ABD/PEL W CLINICAL HISTORY: ANAL CA,C21.0,S/P TREATMENT,SURVEILLANCE,EXCLUDE RECURRENCE OR METS. TECHNIQUE: Imaging Protocol: Axial computed tomography images with coronal and sagittal reformatted images were created and reviewed CONTRAST MATERIAL: Intravenous: Omnipaque 350 Contrast volume:100 ml Oral: Yes COMPARISON: CT CT ABDOMEN PELVIS W from 11/28/2019 FINDINGS: CHEST: LUNGS: There are no pulmonary infiltrates, ominous pulmonary nodules, or pleural effusions.. MEDIASTINUM: There is no hilar nor mediastinal adenopathy. Prominent hiatal hernia is noted. This ma y be para esophageal-type.Distal tip of the right supra clavi in Port-A-Cath is at the SVC-RA junctio n THYROID: There are nodules in both thyroid lobes. The dominant nodule is at the junction of the left lobe and isthmus and measures approximately 1.3 by 1.0 cm. Recommend ultrasound. CARDIAC: Heart size is normal. There is no pericardial effusion.Caliber of the thoracic aorta is wit hin normal limits. OSSEOUS: No significant osseous lesions.. ABDOMEN: There is no ascites. LIVER: There are no focal hepatic lesions nor dilatation of intrahepatic ducts. GALLBLADDER/BILIARY: No obvious gallbladder pathology. CBD is not dilated. PANCREAS: No evidence of pancreatic mass nor dilatation of the pancreatic duct. SPLEEN: Spleen is not enlarged. There are no intrasplenic lesions. Splenic and portal veins are brower nt. ADRENALS: There are no significant adrenal masses. KIDNEYS: No calculi nor hydronephrosis. No solid renal masses. No cysts evident. ABDOMINAL AORTA: Abdominal aorta is not enlarged. LYMPH NODES: There is no retroperitoneal nor paraaortic adenopathy. ABDOMINAL WALL: No evidence of significant anterior abdominal wall hernia. There is atrophy of right rectus abdominus muscle. GI: There is no evidence of bowel obstruction. PELVIS: LYMPH NODES: There is no intrapelvic nor inguinal adenopathy. GI: No evidence of appendicitis.There is sigmoid diverticuli but no evidence of obvious acute diverti culitis. There is some increased relatively symmetrical density in the presacral/perirectal fat, possibly rela ernesto to radiation treatment. URINARY BLADDER: No calculi nor masses evident REPRODUCTIVE: Uterus is surgically absent. There are no abnormal adnexal masses. OSSEOUS: No significant osseous lesions. Multilevel degenerative disc disease. Mild degenerative anterolisthesis L4 upon L5. IMPRESSION: 1. No evidence of intrathoracic metastatic disease. There are no pulmonary nodules nor pleural effus ions and no intrathoracic adenopathy. 2. However, there are non multiple nodules in the thyroid gland. The largest is at the junction of t he left lobe and isthmus measuring approximately 13 x 10 millimeters. Further study of thyroid with ultrasound examination should be performed. 3. No evidence of hepatic lesions nor other significant findings in the abdomen and no ascites. No s ignificant lymphadenopathy evident. 4. There is some streaking in the perirectal fat and presacral region which is possibly related to ra diation treatment in this region. There is no abnormal fluid collection. No bowel obstruction. No free air. No abscess. 5. There are no lytic osseous lesions identified. 6. The uterus is surgically absent. There are no abnormal adnexal masses. 7. There is sigmoid diverticuli but no evidence of acute diverticulitis. RADIATION DOSE DELIVERED: 1,640.92mGy.cm Total DLP DATA REPOSITORY: All CT scans at this facility are submitted to the National Radiology Data Registry (NRDR) Dose Index Registry (DIR) with the [employer] (A[employer]). RADIATION OPTIMIZATION: All CT scans at this facility use at least one of these dose optimization te chniques: automated exposure control; mA and/or kV adjustment per patient size (includes targeted exa ms where dose is matched to clinical indication); or iterative reconstruction.
[2020-08-05] MEDS: Omnipaque 350 MG/ML 50 ML BTL PO (08:53)
[2020-08-05] MEDS: Breeza Beverage 473 ML BTL PO ×2 (08:53→08:54)
[2020-08-05] MEDS: Normal Saline - Diluent 50 ML VIAL IV (10:06)
[2020-08-05] MEDS: Omnipaque 350 MG/ML 100 ML BTL IJ (10:06)
== END 2020-08-05 00:59 ==
PROVIDERS: PCP Neuromusculoskeletal Medicine & OMM; Visit Provider Internal Medicine
DX: Z12.11 Encounter for screening for malignant neoplasm of colon (principal); C21.0 Malignant neoplasm of anus, unspecified; E04.2 Nontoxic multinodular goiter; K57.30 Diverticulosis of large intestine without perforation or abscess without bleeding; Z90.710 Acquired absence of both cervix and uterus
CPT/HCPCS: 74177; 96523; 71260; J3490; Q9967

== ENCOUNTER 2020-08-05 09:00 | Outpatient (RCR) | payer MEDICARE, SELFPAY ==
--- OUTSIDE RECORDS SUMMARY | 2020-07-20 11:00 | XMS_ITS ---
:1945 Author Care Team Providers Name Role Phone HANNA YANG DO Primary Care Provider [phone] RENAE CASE MD General Surgeon [phone] Allergies Code Code System Name Reaction Severity Status Onset 457617 RxNorm Remicade Hives Moderate Active 5 ? ? ? Itching Moderate Active ? Penicillins Hives ? Active ? Sulfa Rash ? Active ? (Sulfonamide Antibiotics) TUBERCULIN,PPD,M Anaphylaxis ? Active ? ULTI-PUNCTURE Notes: bladder irrigation preser vative Medications Name Status Start Date Stop Date ? ? acetaminophen Active ? Not available 1000mg every 6 hours bupropion HCl XL 150 mg 24 hr tablet, extended release Active ? Not available TAKE 1 TABLET BY MOUTH ONCE DAILY capecitabine 500 mg tablet Active ? Not a vailable Take 7 tablets every day by oral route. cyclobenzaprine 10 mg tablet Completed 08/29/2011 1 Tablet: tid - three times a day prn dibucaine 1 % topical ointment Active ? N ot available PRN docusate sodium 100 mg capsule Active ? N ot available Take 2 capsules every day by oral route. escitalopram 20 mg tablet Active ? Not av ailable TAKE 1 TABLET BY MOUTH ONCE DAILY famotidine 20 mg tablet Active ? Not avai lable Take 1 tablet twice a day by oral route. fentanyl 25 mcg/hr transdermal Completed ? 1 patch folic acid Completed ? 12/02/2019 800mg QD folic acid 800 mcg tablet Active ? Not av ailable Take 1 tablet every day by oral route. hydrocodone 5 mg-acetaminophen 325 Completed ? 12/02/2019 mg tablet hydroxychloroquine 200 mg tablet Active 06/02/2020 Not available ibuprofen Completed ? 12/02/2019 Imodium A-D Active ? Not available daily for loose stoolsl Keflex 500 mg capsule Completed 07/15/2013 07/25/2013 1 (one) Capsule Capsule: every 12 hours loperamide 2 mg capsule Active ? Not avai lable Take 1 capsule every day by oral route. Metamucil Active ? Not available 3.4 gram/5.8 gram daily methotrexate 2.5 mg tablet Active 06/02/2020 Not a vailable Take 9 tablets every week by oral route. methotrexate sodium 2.5 mg tablet Completed ? 12/02/2019 metoclopramide 10 mg tablet Active ? Not available Take 0.5 tablets 4 times a day by oral route. multivitamin Active ? Not available 1 daily oxycodone 10 mg tablet Active ? Not avail able Take 1 tablet every 4 hours by oral route. Pepcid Active ? Not available 20 mg daily prn potassium chloride Completed ? 12/02/2019 20 meq tablets 1 daily x14 potassium chloride 20 mEq/15 mL oral liquid Completed ? 04/20/2020 Take 15 mL every day by oral route. prednisone Active ? Not available for 3 weeks per [facility] prednisone 5 mg tablet Completed ? 0 Prevalite 4 gram oral powder Active ? Not available Take 1 scoop 4 times a day by oral route. prochlorperazine 10 mg tablet Active ? No t available Take 1 tablet every 6 hours by oral route. Remicade 100 mg intravenous solution Completed 08/07/2011 04/02/2014 400 For Solution: q 8 weeks rituximab Active ? Not available Vitamin D Active ? Not available D3. 1000unit daily vitamin E Active ? Not available 400units daily Problems Name Status Onset Date Source ? 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 Non-toxic Multinodular Goiter Active ? Hi story Depressive Disorder Active ? History Hypertensive Disorder Active ? History Aneurysm of Artery, Other than Aorta Active ? History Rectal Polyp Active ? History Rheumatoid Arthritis Active ? History Lack of Energy Unknown ? History Artificial Knee Joint Present Active ? Hi story Counseling Unknown ? History Adult Health Examination Unknown ? History Procedure by Method Unknown ? History Procedure Unknown ? History Pain in Left Knee Active ? History Specialized Medical Examination Unknown ? History Procedures Date Name Performed by ? 09/24/2019 Insertion of Implantable Venous Access P ort Information not available Notes: carcinoma of anal canal 08/05/2019 Colonoscopy Information not avai lable Notes: 2 cm sessile polyp in cecum. 1 cm sessile polup in transverse colon. mild diverticulosis. mass in distal rectum appears malignant (4cm). 07/10/13 diverticulosis. 01/25/06 colon polyp 08/03/2011 Cataract Surgery Information not avai lable Notes: right 02/19/1999 Hysterectomy Information not avai lable Notes: abdominal ? Arthroplasty of Knee Information not ashish ilable Notes: bilateral 08/08/2019 CT, Chest + Abdomen + Pelvis, W/ [facility] Radiology (Internal) Contrast [address], [place] [id number] (Work Place) Results Lab Results Date Name Specimen Result Interpretation Description Value Range Status Address ? 12/03/2019 BMP, Serum or S High g/r 119 mg/dL 74-106 Fin al [place] [facility] mg/dL [facility] [address] ? ? S ? Bun 13 mg/dL 7-17 Final [place] mg/dL [facility] (Internal) : [address] ? ? S Low Crea 0.50 0.52-1.04 Final [place] mg/dL mg/dL [facility] ([facility]) : [address] ? ? S Low Ca 7.9 mg/dL 8.4-10.2 Final [place] mg/dL [facility] ([facility] : [address] ? ? S Low Na 127 137-145 Final [place] mmol/L mmol/L [facility] ([facility] : [address] ? ? S Low K 3.0 3.5-5.1 Final [place] mmol/L mmol/L [facility] ([facility] : [address] ? ? S ? Cl 99 mmol/L 98-107 Final [place] mmol/L [facility] (Internal) : [address] ? ? S ? Tco2 23.0 22.0-30.0 Final [place] mmol/L mmol/L [facility] (Internal) : [address] 08/05/2019 Pathology TISS ? Report (see ? Final No rth Study below) [facility] (Internal) : [address] 07/27/2019 CBC W/ Auto BLD ? Wbc 5.4 5.0-10.0 Final [place] Diff 10*3/uL 10*3/uL [facility] ([facility] : [address] ? ? BLD ? Rbc 5.01 4.10-5.30 Final [place] 10*6/uL 10*6/uL [facility] (Internal) : [address] ? ? BLD ? Hgb 14.8 g/dL 12.0-16.0 Final Nort h g/dL [facility] (Internal) : [address] ? ? BLD ? Hct 45.7 % 37.0-47.0 Final [facility] (Internal) : [address] ? ? BLD ? Mcv 91.2 fL 80.0-96.[address] [facility] (Internal) : [address] ? ? BLD ? Mch 29.5 pg 26.0-32.0 Final [facility] (Internal) : [address] ? ? BLD ? Mchc 32.4 g/dL 31.0-35.0 Final Nort h g/dL [facility] (Internal) : [address] ? ? BLD ? Rdw 14.0 % 11.5-14.5 Final [facility] (Internal) : [address] ? ? BLD ? Plt 251 130-450 Final [place] 10*3/uL 10*3/uL [facility] (Internal) : [address] ? ? BLD ? Anc 3.42 ? Final Gill 10*3/uL [facility] (Internal) : [address] ? ? BLD ? Nlr 2.65 0.00-3.[address] [facility] (Internal) : [address] ? ? BLD ? Neutro 63.4 % 40.0-75.0 Final [facility] (Internal) : [address] ? ? BLD ? Lymph 23.9 % 20.0-50.0 Final [facility] (Internal) : [address] ? ? BLD ? Garrett 9.6 % 2.0-10.0 Final [facility] : [address] ? ? BLD ? Eos 2.0 % 1.0-6.0 % Final [facility] (Internal) : [address] ? ? BLD ? Baso 0.7 % 0.0-1.0 % Final [facility] (Internal) : [address] ? ? BLD ? Ig 0.4 % 0.0-0.9 % Final [facility] (Internal) : [address] 07/27/2019 CMP, Serum or S ? g/r 100 mg/dL 74-106 Fin al [place] Plasma mg/dL [facility] : [address] ? ? S ? Bun 14 mg/dL 7-17 Final [facility] mg/dL [facility] ([facility] : [address] ? ? S ? Crea 0.80 0.52-1.04 Final [place] mg/dL mg/dL [facility] ([facility] : [address] ? ? S ? Ca 9.3 mg/dL 8.4-10.2 Final [facility] mg/dL [facility] ([facility] : [address] ? ? S ? Na 138 137-145 Final [facility] mmol/L mmol/L [facility] ([facility] : [address] ? ? S ? K 5.0 3.5-5.1 Final [facility] mmol/L mmol/L [facility] ([facility] : [address] ? ? S ? Cl 101 98-107 Final [place] mmol/L mmol/L [facility] ([facility] : [address] ? ? S ? Tco2 25.0 22.0-30.0 Final [facility] mmol/L mmol/L [facility] ([facility] : [address] ? ? S ? Tp 7.3 g/dL 6.3-8.2 Final [facility] g/dL [facility] : [address] ? ? S ? Alb 4.2 g/dL 3.5-5.0 Final [place] g/dL [facility] (Internal) : [address] ? ? S ? Tbil 0.9 mg/dL 0.2-1.3 Final [place] mg/dL [facility] (Internal) : [address] ? ? S ? Alp 65 U/L 38-126 Final [place] U/L [facility] (Internal) : [address] ? ? S ? Alt (Sgpt) 17 U/L 9-52 U/L [facility] : [address] ? ? S ? Ast (Sgot) 25 U/L 14-36 U/L Final No rth [facility] (Internal) : [address] 12/07/2018 Neutrophil BLD - Anc-manual 2.19 ? Latoya l Gill Count, 10*3/uL [facility] Lab (Anc), Blood (Int ernal): [address] 12/07/2018 Differential, BLD - Polys 47 % 40-75 % Final [facility], Blood Cou [facility] (Internal) : [address] ? ? BLD - Bands 0 % 0-5 % Final [facility] (Internal) : [address] ? ? BLD - Lymphs 35 % 20-50 % Final [facility] ab (Internal) : [address] ? ? BLD High Garrett 11 % 2-10 % Final [facility] ab (Internal) : [address] ? ? BLD - Eos 4 % 0-6 % Final [facility] (Internal) : [address] ? ? BLD High Baso 2 % 0-1 % Final [facility] (Internal) : [address] ? ? BLD - Atyp Lymph 1 % ? Final [facility] (Internal) : [address] ? ? BLD - Plts, Est. adequate adequate Final [facility] (Internal) : [address] ? ? BLD - RBC normal normal Final [facility] (Internal[facility] : [address] 12/07/2018 CMP, Serum or S - g/r 89 mg/dL 74-106 Latoya l [place] Plasma mg/dL [facility] ([facility] : [address] ? ? S High Bun 19 mg/dL 7-17 Final [facility] mg/dL [facility] ([facility] : [address] ? ? S - Crea 0.80 0.52-1.04 Final [facility] mg/dL mg/dL [facility] (Internal) : [address] ? ? S - Ca 8.9 mg/dL 8.4-10.2 Final [facility] mg/dL [facility] ([facility] : [address] ? ? S - Na 140 137-145 Final [facility] mmol/L mmol/L [facility] (Internal) : [address] ? ? S - K 4.5 3.5-5.1 Final [facility] mmol/L mmol/L [facility] ([facility]) : [address] ? ? S - Cl 105 98-107 Final [place] mmol/L mmol/L [facility] (Internal) : [address] ? ? S - Tco2 25.0 22.0-30.0 Final [facility] mmol/L mmol/L [facility] (Internal) : [address] ? ? S - Tp 6.6 g/dL 6.3-8.2 Final [facility] g/dL [facility] ([facility] : [address] ? ? S - Alb 3.5 g/dL 3.5-5.0 Final [facility] g/dL [facility] (Internal) : [address] ? ? S - Tbil 0.7 mg/dL 0.2-1.3 Final [facility] mg/dL [facility] ([facility] : [address] ? ? S - Alp 66 U/L 38-126 Final [facility] U/L [facility] ([facility] : [address] ? ? S - Alt (Sgpt) 12 U/L 9-52 U/L Final [facility] : [address] ? ? S - Ast (Sgot) 22 U/L 14-36 U/L Final No rth [facility] : [address] 12/07/2018 CBC W/ Auto BLD Low Wbc 4.7 5.0-10.0 Final [place] Diff 10*3/uL 10*3/uL [facility] ([facility] : [address] ? ? BLD - Rbc 4.47 4.10-5.30 Final [facility] 10*6/uL 10*6/uL [facility] (Internal) : [address] ? ? BLD - Hgb 13.4 g/dL 12.0-16.0 Final Nort h g/dL [facility] (Internal) : [address] ? ? BLD - Hct 40.9 % 37.0-47.0 Final [facility] ab (Internal) : [address] ? ? BLD - Mcv 91.5 fL 80.0-96.[address] [facility] (Internal) : [address] ? ? BLD - Mch 30.0 pg 26.0-32.0 Final Gill pg [facility] (Internal) : [address] ? ? BLD - Mchc 32.8 g/dL 31.0-35.0 Final Nort h g/dL [facility] (Internal) : [address] ? ? BLD - Rdw 13.6 % 11.5-14.5 [facility] (Internal[facility] : [address] ? ? BLD - Plt 223 130-450 Final [facility] 10*3/uL 10*3/uL [facility] (Internal) : [address] 07/06/2018 CMP, Serum or S - g/r 93 mg/dL 74-106 Latoya l [facility] Plasma mg/dL [facility] ([facility] : [address] ? ? S - Bun 15 mg/dL 7-17 Final [place] mg/dL [facility] (Internal) : [address] ? ? S - Crea 0.70 0.52-1.04 Final [facility] mg/dL mg/dL [facility] ([facility] : [address] ? ? S - Ca 8.8 mg/dL 8.4-10.2 Final [facility] mg/dL [facility] ([facility] : [address] ? ? S Low Na 136 137-145 Final [facility] mmol/L mmol/L [facility] (Internal) : [address] ? ? S - K 4.2 3.5-5.1 Final [facility] mmol/L mmol/L [facility] (Internal[facility] : [address] ? ? S - Cl 103 98-107 Final [facility] mmol/L mmol/L [facility] (Internal) : [address] ? ? S - Tco2 27.0 22.0-30.0 Final [facility] mmol/L mmol/L [facility] (Internal) : [address] ? ? S - Tp 6.8 g/dL 6.3-8.2 Final [facility] g/dL [facility] (Internal[facility] : [address] ? ? S - Alb 3.7 g/dL 3.5-5.0 Final [facility] g/dL [facility] ([facility] : [address] ? ? S - Tbil 0.8 mg/dL 0.2-1.3 Final [facility] mg/dL [facility] (Internal[facility] : [address] ? ? S - Alp 64 U/L 38-126 Final [facility] U/L [facility] ([facility] : [address] ? ? S - Alt (Sgpt) 10 U/L 9-52 U/L Final [facility] : [address] ? ? S - Ast (Sgot) 21 U/L 14-36 U/L Final No [facility]th [facility] ([facility] : [address] 07/06/2018 CBC W/ Auto BLD - Wbc 6.0 5.0-10.0 Final [place] Diff 10*3/uL 10*3/uL [facility] ([facility] : [address] ? ? BLD - Rbc 4.77 4.10-5.30 Final [place] 10*6/uL 10*6/uL [facility] (Internal) : [address] ? ? BLD - Hgb 13.9 g/dL 12.0-16.0 Final Nort h g/dL [facility] (Internal[facility] : [address] ? ? BLD - Hct 43.0 % 37.0-47.0 Final North % [facility] (Internal) : [address] ? ? BLD - Mcv 90.1 fL 80.0-96.0 Final Gill fL [facility] (Internal) : [address] ? ? BLD - Mch 29.1 pg 26.0-32.0 Final [facility] pg [facility] ([facility] : [address] ? ? BLD - Mchc 32.3 g/dL 31.0-35.0 Final Nort h g/dL [facility] ([facility] : [address] ? ? BLD - Rdw 12.6 % 11.5-14.5 Final [facility] (Internal[facility] : [address] ? ? BLD - Plt 194 130-450 Final [facility] 10*3/uL 10*3/uL [facility] ([facility] : [address] ? ? BLD - Anc 3.30 ? Final [facility] 10*3/uL [facility] (Internal[facility] : [address] ? ? BLD - Neutro 55.3 % 40.0-75.0 Final [facility] (Internal) : [address] ? ? BLD - Lymph 35.0 % 20.0-50.0 Final [facility] (Internal) : [address] ? ? BLD - Garrett 6.7 % 2.0-10.0 Final [facility] (Internal) : [address] ? ? BLD - Eos 2.0 % 1.0-6.0 % Final [facility] ([facility] : [address] ? ? BLD - Baso 0.8 % 0.0-1.0 % Final [facility] ([facility] : [address] ? ? BLD - Ig 0.2 % 0.0-0.9 % Final [facility] ([facility] : [address] 12/07/2017 CMP, Serum or S - g/r 74 mg/dL 74-106 Latoya l [facility] Plasma mg/dL [facility] ([facility] : [address] ? ? S High Bun 20 mg/dL 7-17 Final [facility] mg/dL [facility] ([facility] : [address] ? ? S - Crea 1.00 0.52-1.04 Final [facility] mg/dL mg/dL [facility] (Internal) : [address] ? ? S - Ca 9.2 mg/dL 8.4-10.2 Final [facility] mg/dL [facility] ([facility] : [address] ? ? S - Na 138 137-145 Final [facility] mmol/L mmol/L [facility] (Internal) : [address] ? ? S - K 5.0 3.5-5.1 Final [facility] mmol/L mmol/L [facility] (Internal) : [address] ? ? S - Cl 104 98-107 Final [facility] mmol/L mmol/L [facility] (Internal) : [address] ? ? S - Tco2 26.0 22.0-30.0 Final [facility] mmol/L mmol/L [facility] (Internal) : [address] ? ? S - Tp 7.0 g/dL 6.3-8.2 Final [facility] g/dL [facility] (Internal[facility] : [address] ? ? S - Alb 3.9 g/dL 3.5-5.0 Final [facility] g/dL [facility] ([facility] : [address] ? ? S - Tbil 0.8 mg/dL 0.2-1.3 Final North mg/dL [facility] (Internal) : [address] ? ? S - Alp 70 U/L 38-126 Final [place] U/L [facility] (Internal) : [address] ? ? S - Alt (Sgpt) 20 U/L 9-52 U/L Final [facility] : [address] ? ? S - Ast (Sgot) 23 U/L 14-36 U/L Final [facility] [address] 12/07/2017 CBC W/ Auto BLD - Wbc 5.8 5.0-10.0 Final [facility] Diff 10*3/uL 10*3/uL [facility] ([facility] : [address] ? ? BLD - Rbc 4.68 4.10-5.30 Final [facility] 10*6/uL 10*6/uL [facility] ([facility] : [address] ? ? BLD - Hgb 13.8 g/dL 12.0-16.0 Final Nort h g/dL [facility] (Internal) : [address] ? ? BLD - Hct 42.2 % 37.0-47.0 Final [facility] (Internal) : [address] ? ? BLD - Mcv 90.2 fL 80.0-96.[address] [facility] (Internal) : [address] ? ? BLD - Mch 29.5 pg 26.0-32.0 Final Gill pg [facility] (Internal) : [address] ? ? BLD - Mchc 32.7 g/dL 31.0-35.0 Final Nort h g/dL [facility] (Internal) : [address] ? ? BLD - Rdw 13.9 % 11.5-14.5 Final [facility] (Internal) : [address] ? ? BLD - Plt 198 130-450 Final [facility] 10*3/uL 10*3/uL [facility] L ab (Internal) : [address] ? ? BLD - Anc 3.40 ? Final [facility] 10*3/uL [facility] L ab (Internal) : [address] ? ? BLD - Neutro 58.4 % 40.0-75.0 Final [facility] L ab (Internal) : [address] ? ? BLD - Lymph 27.5 % 20.0-50.0 Final [facility] L ab (Internal) : [address] ? ? BLD High Garrett 10.5 % 2.0-10.0 Final [facility] ab (Internal) : [address] ? ? BLD - Eos 2.4 % 1.0-6.0 % Final [facility] L ab (Internal) : [address] ? ? BLD - Baso 0.9 % 0.0-1.0 % Final [facility] (Internal) : [address] ? ? BLD - Ig 0.3 % 0.0-0.9 % Final [facility] (Internal) : [address] 06/23/2017 Venipuncture BLD ? Venpn* ? ? Final [facility] (Internal) : [address] 06/23/2017 CBC W/ Auto BLD Low Wbc 4.8 5.0-10.0 Final [facility] Diff 10*3/uL 10*3/uL [facility] ab (Internal) : [address] ? ? BLD ? Rbc 4.46 4.10-5.30 Final [facility] 10*6/uL 10*6/uL [facility] (Internal) : [address] ? ? BLD ? Hgb 13.2 g/dL 12.0-16.0 Final Nort h g/dL [facility] (Internal) : [address] ? ? BLD ? Hct 39.9 % 37.0-47.0 Final [facility] L ab (Internal) : [address] ? ? BLD ? Mcv 89.5 fL 80.0-96.[address] [facility] ab (Internal) : [address] ? ? BLD ? Mch 29.6 pg 26.0-32.0 Final [facility] (Internal) : [address] ? ? BLD ? Mchc 33.1 g/dL 31.0-35.0 Final Nort h g/dL [facility] (Internal) : [address] ? ? BLD ? Rdw 13.2 % 11.5-14.5 Final [facility] L ab (Internal) : [address] ? ? BLD ? Plt 217 130-450 Final [facility] 10*3/uL 10*3/uL [facility] (Internal) : [address] ? ? BLD ? Anc 2.76 ? Final [place] 10*3/uL [facility] (Internal) : [address] ? ? BLD ? Neutro 58.1 % 40.0-75.0 Final [facility] L ab (Internal) : [address] ? ? BLD ? Lymph 29.7 % 20.0-50.0 Final [facility] L ab (Internal) : [address] ? ? BLD ? Garrett 8.6 % 2.0-10.0 Final [facility] L ab (Internal) : [address] ? ? BLD ? Eos 2.3 % 1.0-6.0 % Final [facility] ab (Internal) : [address] ? ? BLD High Baso 1.1 % 0.0-1.0 % Final [facility] ab (Internal) : [address] ? ? BLD ? Ig 0.2 % 0.0-0.9 % Final [facility] (Internal) : [address] 06/23/2017 CMP, Serum or S ? g/r 91 mg/dL 74-106 Latoya l [place] Plasma mg/dL [facility] (Internal) : [address] ? ? S High Bun 18 mg/dL 7-17 Final [facility] mg/dL [facility] : [address] ? ? S ? Crea 0.80 0.52-1.04 Final [facility] mg/dL mg/dL [facility] ([facility] : [address] ? ? S ? Ca 9.1 mg/dL 8.4-10.2 Final [facility] mg/dL [facility] ([facility] : [address] ? ? S ? Na 138 137-145 Final [facility] mmol/L mmol/L [facility] (Internal) : [address] ? ? S ? K 3.5 3.5-5.1 Final [facility] mmol/L mmol/L [facility] (Internal) : [address] ? ? S Low Cl 97 mmol/L 98-107 Final [facility] mmol/L [facility] (Internal) : [address] ? ? S High Tco2 32.0 22.0-30.0 Final [facility] mmol/L mmol/L [facility] (Internal) : [address] ? ? S ? Tp 6.6 g/dL 6.3-8.2 Final [facility] g/dL [facility] ([facility] : [address] ? ? S ? Alb 3.9 g/dL 3.5-5.0 Final [facility] g/dL [facility] ([facility] : [address] ? ? S ? Tbil 0.8 mg/dL 0.2-1.3 Final [facility] mg/dL [facility] ([facility] : [address] ? ? S ? Alp 60 U/L 38-126 Final [facility] U/L [facility] : [address] ? ? S ? Alt (Sgpt) 25 U/L 9-52 U/L [facility] : [address] ? ? S ? Ast (Sgot) 20 U/L 14-36 U/L Final [facility] : [address] 06/23/2017 Lipid Panel, S ? Chol 161 mg/dL 50-200 Latoya l [facility] Serum mg/dL [facility] L ab (Internal) : [address] ? ? S ? Trig 89 mg/dL 10-150 Final [facility] mg/dL [facility] L ab (Internal) : [address] ? ? S High Hdl 61 mg/dL 40-60 Final [facility] mg/dL [facility] [facility] L [facility] (Internal[facility] : [address] t ? ? S ? Ldl 82 mg/dL 0-130 Final Gill mg/dL [facility] L ab (Internal) : [address] t 06/23/2017 TSH, Serum or S ? Tsh 1.49 0.47-4.68 Fin al Gill Plasma u[IU]/mL u[IU]/mL [facility] L ab (Internal) : [address] t 01/12/2017 Venipuncture BLD ? Venpn* ? ? Final [facility] L ab (Internal) : [address] 01/12/2017 CBC W/ Auto BLD Low Wbc 3.7 5.0-10.0 Final Gill Diff 10*3/uL 10*3/uL [facility] L ab (Internal) : [address] ? ? BLD ? Rbc 4.53 4.10-5.30 Final Gill 10*6/uL 10*6/uL [facility] L ab (Internal) : [address] t ? ? BLD ? Hgb 13.2 g/dL 12.0-16.0 Final Nort h g/dL [facility] L ab (Internal) : [address] t ? ? BLD ? Hct 39.9 % 37.0-47.0 Final Gill % [facility] L ab (Internal) : [address] ? ? BLD ? Mcv 88.1 fL 80.0-96.0 Final [facility] L ab (Internal) : [address] ? ? BLD ? Mch 29.1 pg 26.0-32.0 Final Gill pg [facility] L ab (Internal) : [address] ? ? BLD ? Mchc 33.1 g/dL 31.0-35.0 Final Nort h g/dL [facility] Hospital L ab (Internal) : [address] t ? ? BLD High Rdw 14.6 % 11.5-14.5 Final [facility] L [facility] (Internal) : [address] ? ? BLD ? Plt 187 130-450 Final Gill 10*3/uL 10*3/uL [facility] L [facility] (Internal) : [address] t ? ? BLD ? Anc 1.66 ? Final Gill 10*3/uL [facility] L ab (Internal) : [address] ? ? BLD ? Neutro 44.7 % 40.0-75.0 Final [facility] L [facility] (Internal) : [address] ? ? BLD ? Lymph 41.5 % 20.0-50.0 Final [facility] L ab (Internal) : [address] ? ? BLD ? Garrett 10.0 % 2.0-10.0 Final [facility] L ab (Internal) : [address] ? ? BLD ? Eos 2.7 % 1.0-6.0 % Final [facility] L ab (Internal) : [address] ? ? BLD ? Baso 0.8 % 0.0-1.0 % Final [facility] L [facility] (Internal) : [address] ? ? BLD ? Ig 0.3 % 0.0-0.9 % Final [facility] L [facility] (Internal) : [address] t 01/12/2017 CMP, Serum or S ? g/r 91 mg/dL 74-106 Latoya l [facility] Plasma mg/dL [facility] L ab (Internal) : [address] t ? ? S ? Bun 17 mg/dL 7-17 Final North mg/dL [facility] L [facility] (Internal) : [address] t ? ? S ? Crea 0.80 0.52-1.04 Final [facility] mg/dL mg/dL [facility] L ab (Internal) : [address] t ? ? S ? Ca 8.9 mg/dL 8.4-10.2 Final [facility] mg/dL [facility] ([facility] : [address] t ? ? S Low Na 135 137-145 Final [facility] mmol/L mmol/L [facility] L ab (Internal) : [address] ? ? S Low K 3.4 3.5-5.1 Final [facility] mmol/L mmol/L [facility] ([facility]) : [address] ? ? S Low Cl 97 mmol/L 98-107 Final [facility] mmol/L [facility] L [facility] (Internal) : [address] ? ? S ? Tco2 28.0 22.0-30.0 Final [facility] mmol/L mmol/L [facility] (Internal) : [address] ? ? S ? Tp 6.9 g/dL 6.3-8.2 Final [facility] g/dL [facility] ([facility] : [address] ? ? S ? Alb 3.8 g/dL 3.5-5.0 Final [facility] g/dL [facility] L [facility] (Internal) : [address] ? ? S ? Tbil 0.8 mg/dL 0.2-1.3 Final [facility] mg/dL [facility] L [facility] (Internal) : [address] t ? ? S ? Alp 56 U/L 38-126 Final [facility] U/L [facility] L [facility] (Internal) : [address] ? ? S ? Alt (Sgpt) 24 U/L 9-52 U/L Final [facility] L ab (Internal) : [address] ? ? S ? Ast (Sgot) 26 U/L 14-36 U/L Final No rth [facility] L [facility] (Internal) : [address] 10/11/2016 Venipuncture BLD ? Venpn* ? ? Final [facility] L [facility] (Internal) : [address] 10/11/2016 CMP, Serum or S ? g/r 91 mg/dL 74-106 Latoya l [facility] Plasma mg/dL [facility] ([facility]) : [address] ? ? S High Bun 19 mg/dL 7-17 Final [facility] mg/dL [facility] (Internal) : [address] ? ? S ? Crea 0.90 0.52-1.04 Final [facility] mg/dL mg/dL [facility] (Internal) : [address] ? ? S ? Ca 9.3 mg/dL 8.4-10.2 Final [facility] mg/dL [facility] (Internal) : [address] ? ? S ? Na 138 137-145 Final [facility] mmol/L mmol/L [facility] (Internal) : [address] ? ? S Low K 3.2 3.5-5.1 Final [facility] mmol/L mmol/L [facility] (Internal) : [address] ? ? S ? Cl 99 mmol/L 98-107 Final [facility] mmol/L [facility] (Internal) : [address] ? ? S ? Tco2 27.0 22.0-30.0 Final [facility] mmol/L mmol/L [facility] (Internal) : [address] ? ? S ? Tp 7.2 g/dL 6.3-8.2 Final [facility] g/dL [facility] (Internal) : [address] ? ? S ? Alb 4.1 g/dL 3.5-5.0 Final [facility] g/dL [facility] (Internal) : [address] ? ? S ? Tbil 0.9 mg/dL 0.2-1.3 Final [facility] mg/dL [facility] ([facility]) : [address] ? ? S ? Alp 81 U/L 38-126 Final [facility] U/L [facility] ([facility]) : [address] ? ? S ? Alt (Sgpt) 23 U/L 9-52 U/L Final [facility] : [address] ? ? S ? Ast (Sgot) 24 U/L 14-36 U/L Final No rth [facility] (Internal) : [address] 10/11/2016 CBC W/ Auto BLD ? Wbc 6.5 5.0-10.0 Final Gill Diff 10*3/uL 10*3/uL [facility] L [facility] (Internal) : [address] ? ? BLD ? Rbc 4.56 4.10-5.30 Final Gill 10*6/uL 10*6/uL [facility] (Internal) : [address] ? ? BLD ? Hgb 13.5 g/dL 12.0-16.0 Final Nort h g/dL [facility] L [facility] (Internal) : [address] ? ? BLD ? Hct 40.0 % 37.0-47.0 Final [facility] L [facility] (Internal) : [address] ? ? BLD ? Mcv 87.7 fL 80.0-96.[address] [facility] L ab (Internal) : [address] ? ? BLD ? Mch 29.6 pg 26.0-32.0 Final [facility] L [facility] (Internal) : [address] ? ? BLD ? Mchc 33.8 g/dL 31.0-35.0 Final Nort h g/dL [facility] L [facility] (Internal) : [address] ? ? BLD ? Rdw 12.9 % 11.5-14.5 Final [facility] L ab (Internal) : [address] ? ? BLD ? Plt 199 130-450 Final Gill 10*3/uL 10*3/uL [facility] L [facility] (Internal) : [address] ? ? BLD ? Anc 2.94 ? Final Gill 10*3/uL [facility] L [facility] (Internal) : [address] ? ? BLD ? Neutro 45.2 % 40.0-75.0 Final [facility] L [facility] (Internal) : [address] ? ? BLD ? Lymph 41.2 % 20.0-50.0 Final [facility] L [facility] (Internal) : [address] ? ? BLD High Garrett 10.1 % 2.0-10.0 Final [facility] L [facility] (Internal) : [address] ? ? BLD ? Eos 2.3 % 1.0-6.0 % Final [facility] L [facility] (Internal) : [address] ? ? BLD ? Baso 0.9 % 0.0-1.0 % Final [facility] L [facility] (Internal) : [address] ? ? BLD ? Ig 0.3 % 0.0-0.9 % Final [facility] L [facility] (Internal) : [address] t 06/12/2016 Venipuncture BLD ? Venpn* ? ? Final [facility] L [facility] (Internal) : [address] 06/12/2016 CMP, Serum or S ? g/r 97 mg/dL 74-106 Latoya l [facility] Plasma mg/dL [facility] (Internal) : [address] ? ? S ? Bun 17 mg/dL 7-17 Final [facility] mg/dL [facility] L ab (Internal) : [address] ? ? S ? Crea 0.90 0.52-1.04 Final [facility] mg/dL mg/dL [facility] L [facility] (Internal) : [address] ? ? S ? Ca 9.2 mg/dL 8.4-10.2 Final [facility] mg/dL [facility] (Internal) : [address] ? ? S ? Na 138 137-145 Final [facility] mmol/L mmol/L [facility] L ab (Internal) : [address] ? ? S ? K 3.8 3.5-5.1 Final [facility] mmol/L mmol/L [facility] L [facility] (Internal) : [address] ? ? S ? Cl 98 mmol/L 98-107 Final [facility] mmol/L [facility] L [facility] (Internal) : [address] ? ? S High Tco2 32.0 22.0-30.0 Final [facility] mmol/L mmol/L [facility] L [facility] (Internal) : [address] ? ? S ? Tp 6.9 g/dL 6.3-8.2 Final [facility] g/dL [facility] L [facility] (Internal) : [address] ? ? S ? Alb 3.8 g/dL 3.5-5.0 Final [facility] g/dL [facility] L [facility] (Internal) : [address] ? ? S ? Tbil 1.1 mg/dL 0.2-1.3 Final Gill mg/dL [facility] L [facility] (Internal) : [address] ? ? S ? Alp 70 U/L 38-126 Final [facility] U/L [facility] L [facility] (Internal) : [address] ? ? S ? Alt (Sgpt) 27 U/L 9-52 U/L Final [facility] : [address] ? ? S ? Ast (Sgot) 19 U/L 14-36 U/L Final No rth [facility] L [facility] (Internal) : [address] 06/12/2016 CBC W/ Auto BLD ? Wbc 5.3 5.0-10.0 Final Gill Diff 10*3/uL 10*3/uL [facility] L [facility] (Internal) : [address] ? ? BLD ? Rbc 4.36 4.10-5.30 Final [facility] 10*6/uL 10*6/uL [facility] (Internal) : [address] ? ? BLD ? Hgb 12.8 g/dL 12.0-16.0 Final Nort h g/dL [facility] L [facility] (Internal) : [address] ? ? BLD ? Hct 39.1 % 37.0-47.0 Final Gill % [facility] L [facility] (Internal) : [address] ? ? BLD ? Mcv 89.7 fL 80.0-96.0 Final Gill fL [facility] L [facility] (Internal) : [address] ? ? BLD ? Mch 29.4 pg 26.0-32.0 Final Gill pg [facility] L [facility] (Internal) : [address] ? ? BLD ? Mchc 32.7 g/dL 31.0-35.0 Final Nort h g/dL [facility] L [facility] (Internal) : [address] ? ? BLD ? Rdw 14.3 % 11.5-14.5 Final [facility] L [facility] (Internal) : [address] [place] ? ? BLD ? Plt 191 130-450 Final Gill 10*3/uL 10*3/uL [facility] L [facility] (Internal) : [address] [place] ? ? BLD ? Anc 3.33 ? Final Gill 10*3/uL [facility] L [facility] (Internal) : [address] [place] ? ? BLD ? Neutro 62.7 % 40.0-75.0 Final [facility] (Internal) : [address] [place] ? ? BLD ? Lymph 26.2 % 20.0-50.0 Final [facility] (Internal) : [address] [place] ? ? BLD ? Garrett 9.0 % 2.0-10.0 Final [facility] L ab (Internal) : [address] [place] ? ? BLD ? Eos 1.3 % 1.0-6.0 % Final [facility] L ab (Internal) : [address] [place] ? ? BLD ? Baso 0.6 % 0.0-1.0 % Final [facility] L ab (Internal) : [address] ? ? BLD ? Ig 0.2 % 0.0-0.9 % Final [facility] L ab (Internal) : [address], [place] Past Encounters 07/30/2019 Rectal Pain; Rectal Mass Renae Case MD: [address] [place] [address], Ph. Social History Tobacco Smoking Status Never Smoker Vaccine List Vaccine Type COVID-19, mRNA, LNP-S, PF, 100 mcg/0.5 m L dose 04/22/2020?0.5 mL 05/20/2020?100 mcg Hep B, adult influenza, injectable, quadrivalent 12/12/2017 11/23/2018 influenza, seasonal, injectable 11/19/2009 01/04/2011 12/27/2016?0.5 mL novel [id number], all formulation s 12/11/2008 pneumococcal polysaccharide [id number] 04/19/2010 Tdap zoster live 11/13/2018 zoster recombinant 02/05/2019 Notes: 11/13 is a [employer] Plan of Care Reminders Provider Appointments None ? ? recorded. Lab None ? ? recorded. Referral None ? ? recorded. Procedures None ? ? recorded. Surgeries None ? ? recorded. Imaging None ? ? recorded. Vitals 07/30/2019 10:45AM Office 15 Height Weight BMI Blood Pressure 162.56 cm 103.87 kg 39.3 kg/m2 142/82 mm[Hg] 04/11/2018 08:40AM Follow Up 20 Weight Blood Pressure 100.24 kg 140/86 mm[Hg] 12/22/2015 Weight Blood Pressure 101.15 kg (1) 146/78 mm[Hg] (2) 136/82 mm[Hg] 07/22/2015 Weight Blood Pressure 107.64 kg 136/94 mm[Hg] 06/03/2015 Height Weight Blood Pressure 162.56 cm 107.05 kg 158/92 mm[Hg] 05/11/2015 Weight Blood Pressure 107.95 kg 144/90 mm[Hg] 03/01/2015 Height Weight Blood Pressure 161.29 cm 106.82 kg 158/90 mm[Hg] 02/08/2015 Height Weight Blood Pressure 161.29 cm 106.14 kg 150/98 mm[Hg] 04/02/2014 Height Weight Blood Pressure 161.29 cm 102.97 kg 132/88 mm[Hg] 01/07/2014 Weight Blood Pressure 104.33 kg (1) 170/88 mm[Hg] (2) 160/82 mm[Hg] 07/18/2013 Weight Blood Pressure 101.6 kg 128/82 mm[Hg] 06/19/2013 Weight 98.88 kg 05/16/2013 Weight Blood Pressure 98.88 kg 128/76 mm[Hg] 04/18/2013 Blood Pressure 126/70 mm[Hg] 04/11/2013 Weight Blood Pressure 101.6 kg 124/82 mm[Hg] 10/24/2012 Height Weight Blood Pressure 162.56 cm 107.5 kg 140/80 mm[Hg] 08/29/2011 Height Weight Blood Pressure 162.56 cm 104.78 kg 132/80 mm[Hg] 08/07/2011 Height Weight Blood Pressure 162.56 cm 104.78 kg 136/84 mm[Hg] 08/02/2010 Height Weight Blood Pressure 162.56 cm 106.14 kg 126/80 mm[Hg] 07/30/2009 Height Weight Blood Pressure 162.56 cm 106.59 kg 140/70 mm[Hg] 07/13/2009 Height Weight Blood Pressure 162.56 cm 107.05 kg 134/64 mm[Hg]
[2020-08-05] MEDS: Heparin 500 UNITS/5 ML SYRINGE IV (09:10)
[2020-08-05] MEDS: Normal Saline Flush 10 ML SYR IVP (09:10)
== END 2020-08-18 23:59 | disposition home or self-care (01) ==
LOC: INF 09:00
PROVIDERS: PCP Neuromusculoskeletal Medicine & OMM; Visit Provider Nurse Practitioner Family
DX: C21.0 Malignant neoplasm of anus, unspecified (principal); R19.8 Other specified symptoms and signs involving the digestive system and abdomen; N30.00 Acute cystitis without hematuria; Z45.2 Encounter for adjustment and management of vascular access device
CPT/HCPCS: 96523

== ENCOUNTER 2020-08-13 02:33 | Outpatient (CLI) | payer MEDICARE, OTHER, SELFPAY ==
[2020-08-13 09:06] LABS: Abs Immature Grans 0.02 10^3/uL (0.0-0.06); Absolute Basophil Count 0.02 10^3/uL (0.0-0.2); Absolute Eosinophil Count 0.05 10^3/uL (0.0-0.7); Absolute Lymphocyte Count 1.15 10^3/uL (1.2-3.4); Absolute Monocyte Count 0.43 10^3/uL (0.1-0.8); Absolute Neutrophil Count 1.58 10^3/uL (1.2-6.7); Basophils % 0.6; Eosinophils % 1.5; HCT 36.4 % (36.0-46.0); Immature Grans % 0.6; Lymphocytes % 35.4; MCH 30.2 pg (27.0-33.0); MCV 91.7 fL (80-95); MPV 8.4 fL (8.0-11.0); Monocytes % 13.2; Neutrophils % 48.7; Nucleated RBC 0 %; Platelet Count 164 10^3/uL (130-400); RBC 3.97 10^6/uL (3.93-5.22); RDW 15.9 % (11.7-14.6); RDW-SD 53.3 fL; WBC 3.25 10^3/uL (4.4-10.8)
[2020-08-13 10:12] LABS: ALT 18 U/L (14-59); AST 15 U/L (15-37); Albumin 3.2 g/dL (3.4-5.0); Alkaline Phosphatase 56 U/L (46-116); Anion Gap 5.4 mmol/L (3-11); BUN 13 mg/dL (7-18); Bilirubin, Total 0.7 mg/dL (0.2-1.0); CO2 29.6 mmol/L (21.0-32.0); CREATININE 0.8 mg/dL (0.55-1.02); Calcium 8.6 mg/dL (8.5-10.1); Chloride 101 mmol/L (98-107); Glucose 88 mg/dL (74-106); Potassium 4.5 mmol/L (3.5-5.1); Sodium 136 mmol/L (136-145)
[2020-08-16 09:43] LABS: IgA 194 mg/dL (85-499); IgG 737 mg/dL (610-1,616); IgM 23 mg/dL (35-242)
== END 2020-08-13 02:34 | disposition home or self-care (01) ==
LOC: LBO 02:33
PROVIDERS: PCP Neuromusculoskeletal Medicine & OMM; Visit Provider Internal Medicine Rheumatology
DX: Z79.899 Other long term (current) drug therapy (principal); M05.9 Rheumatoid arthritis with rheumatoid factor, unspecified
CPT/HCPCS: 36415; 80053; 82784; 85025

== ENCOUNTER 2020-09-17 12:59 | Outpatient (CLI) | payer MEDICARE, OTHER, SELFPAY ==
[2020-09-17 13:21] LABS: Abs Immature Grans 0.01 10^3/uL (0.0-0.06); Absolute Basophil Count 0.02 10^3/uL (0.0-0.2); Absolute Eosinophil Count 0.06 10^3/uL (0.0-0.7); Absolute Lymphocyte Count 1.57 10^3/uL (1.2-3.4); Absolute Monocyte Count 0.53 10^3/uL (0.1-0.8); Absolute Neutrophil Count 1.99 10^3/uL (1.2-6.7); Basophils % 0.5; Eosinophils % 1.4; HCT 35.2 % (36.0-46.0); HGB 11.7 g/dL (11.2-15.7); Immature Grans % 0.2; Lymphocytes % 37.6; MCH 30.9 pg (27.0-33.0); MCHC 33.2 % (32.0-36.0); MCV 92.9 fL (80-95); MPV 8.6 fL (8.0-11.0); Monocytes % 12.7; Neutrophils % 47.6; Nucleated RBC 0 %; Platelet Count 169 10^3/uL (130-400); RBC 3.79 10^6/uL (3.93-5.22); RDW 14.2 % (11.7-14.6); WBC 4.18 10^3/uL (4.4-10.8)
[2020-09-17 13:37] LABS: ALT 20 U/L (14-59); AST 17 U/L (15-37); Albumin 3.2 g/dL (3.4-5.0); Alkaline Phosphatase 63 U/L (46-116); Anion Gap 6.5 mmol/L (3-11); BUN 14 mg/dL (7-18); Bilirubin, Total 0.6 mg/dL (0.2-1.0); CO2 29.5 mmol/L (21.0-32.0); CREATININE 0.7 mg/dL (0.55-1.02); Calcium 8.7 mg/dL (8.5-10.1); Chloride 102 mmol/L (98-107); Glucose 83 mg/dL (74-106); Potassium 4.4 mmol/L (3.5-5.1); Sodium 138 mmol/L (136-145); Total Protein 5.6 g/dL (6.4-8.2)
[2020-09-17 14:01] LABS: Vitamin B12 205 pg/mL (193-986)
== END 2020-09-17 13:00 | disposition home or self-care (01) ==
PROVIDERS: PCP Neuromusculoskeletal Medicine & OMM; Visit Provider Internal Medicine Hematology & Oncology
DX: C21.0 Malignant neoplasm of anus, unspecified (principal); G60.8 Other hereditary and idiopathic neuropathies; M05.9 Rheumatoid arthritis with rheumatoid factor, unspecified; Z79.899 Other long term (current) drug therapy
CPT/HCPCS: 36415; 80053; 82607; 85025

== ENCOUNTER 2020-12-22 01:40 | Outpatient (CLI) | payer MEDICARE, OTHER, SELFPAY ==
[2020-12-22 12:22] LABS: Abs Immature Grans 0.01 10^3/uL (0.0-0.06); Absolute Basophil Count 0.02 10^3/uL (0.0-0.2); Absolute Eosinophil Count 0.11 10^3/uL (0.0-0.7); Absolute Lymphocyte Count 1.13 10^3/uL (1.2-3.4); Absolute Monocyte Count 0.45 10^3/uL (0.1-0.8); Absolute Neutrophil Count 1.79 10^3/uL (1.2-6.7); Basophils % 0.6; Eosinophils % 3.1; HGB 12.1 g/dL (11.2-15.7); Immature Grans % 0.3; Lymphocytes % 32.2; MCH 29.7 pg (27.0-33.0); MCHC 31.8 % (32.0-36.0); MCV 93.1 fL (80-95); Monocytes % 12.8; Nucleated RBC 0 %; Platelet Count 182 10^3/uL (130-400); RBC 4.08 10^6/uL (3.93-5.22); RDW 14.1 % (11.7-14.6); WBC 3.51 10^3/uL (4.4-10.8)
[2020-12-22 12:47] LABS: ALT 22 U/L (14-59); AST 14 U/L (15-37); Albumin 3.2 g/dL (3.4-5.0); Alkaline Phosphatase 75 U/L (46-116); Anion Gap 5.7 mmol/L (3-11); BUN 14 mg/dL (7-18); Bilirubin, Total 0.6 mg/dL (0.2-1.0); CO2 31.3 mmol/L (21.0-32.0); CREATININE 0.8 mg/dL (0.55-1.02); Calcium 8.6 mg/dL (8.5-10.1); Chloride 103 mmol/L (98-107); Glucose 78 mg/dL (74-106); Potassium 4.4 mmol/L (3.5-5.1); Sodium 140 mmol/L (136-145); Total Protein 5.8 g/dL (6.4-8.2)
== END 2020-12-22 01:41 | disposition home or self-care (01) ==
LOC: LOS 01:40
PROVIDERS: PCP Neuromusculoskeletal Medicine & OMM; Visit Provider Internal Medicine Rheumatology
DX: M05.9 Rheumatoid arthritis with rheumatoid factor, unspecified (principal); Z79.899 Other long term (current) drug therapy
CPT/HCPCS: 36415; 80053; 85025